=== PATIENT | female | born 1950 | race Caucasian/White ===

== ENCOUNTER 2017-12-11 08:07 | Day surgery (SDC) | payer MEDICARE, OTHER ==
[~2017-12-11] VITALS: Ht 160 cm; Wt 83.7 kg
[~2017-12-11 08:07] MED LIST: CEPH500 PO; FURO20 PO; POTCHL20ER PO
[2017-12-11] MEDS ORDERED: ASPI81CH (08:55)
[2017-12-11] MEDS ORDERED: Omeprazole20 M1 (08:55)
[2017-12-11] MEDS ORDERED: HYDCHL25 (08:55)
[2017-12-11] MEDS ORDERED: LOSA50 (08:55)
[2017-12-11] MEDS ORDERED: DUEXIS 800-26.1 EACH (08:56)
== END 2017-12-11 10:35 | disposition home or self-care (01) ==
LOC: ORSCSDS 08:07
PROVIDERS: Internal Medicine Gastroenterology
PROC: 0DB68ZX Excision of Stomach, Via Natural or Artificial Opening Endoscopic, Diagnostic (ICD-10-PCS; principal; 2017-12-11 09:30)
DX: K21.9 Gastro-esophageal reflux disease without esophagitis (principal); R10.13 Epigastric pain; K25.9 Gastric ulcer, unspecified as acute or chronic, without hemorrhage or perforation; K29.70 Gastritis, unspecified, without bleeding; I10 Essential (primary) hypertension; E66.9 Obesity, unspecified; Z68.32 Body mass index [BMI] 32.0-32.9, adult; Z87.891 Personal history of nicotine dependence; Z79.82 Long term (current) use of aspirin; Z79.899 Other long term (current) drug therapy
CPT/HCPCS: 88305; 88342; J7120

== ENCOUNTER → 2018-03-27 | Outpatient (CLI) | payer MEDICARE, OTHER ==
[~2018-03-27] MED LIST changes: +ASPI81CH; +DUEXIS 800-26.1 EACH; +HYDCHL25; +LOSA50; +Omeprazole20 M1
== END | disposition home or self-care (01) ==
LOC: PLD 10:29 → LAB SHORT 10:29
DX: D48.5 Neoplasm of uncertain behavior of skin (principal)
CPT/HCPCS: 88305

== ENCOUNTER → 2021-03-17 | Outpatient (CLI) | payer MEDICARE, OTHER | LOC: LAB SHORT 10:58 → PLD 10:58 | DX: D48.5 Neoplasm of uncertain behavior of skin (principal) | CPT/HCPCS: 88305 ==

== ENCOUNTER 2021-07-14 07:14 | Emergency (ER) | payer MEDICARE, OTHER ==
[~2021-07-14] VITALS: Ht 160 cm; Wt 72.6 kg
[2021-07-14 08:45] LABS: Calcium, Ionized (POC) 1.05 mmol/L (1.10-1.46); Chloride (POC) 85 mmol/L (98-108); Creatinine (POC) 0.6 mg/dL (0.6-1.0); Glucose (ISTAT POC) 147 mg/dL (70-99); Hemoglobin (POC) 13.9 g/dL (12.0-16.0); Potassium (POC) 3.8 mmol/L (3.5-5.5); Sodium (POC) 122 mmol/L (135-148); Total CO2 (POC) 22 mmol/L (21-32)
[2021-07-14 11:00] LABS: Calcium, Ionized (POC) 1.04 mmol/L (1.10-1.46); Chloride (POC) 87 mmol/L (98-108); Creatinine (POC) 0.6 mg/dL (0.6-1.0); Glucose (ISTAT POC) 137 mg/dL (70-99); Hemoglobin (POC) 13.9 g/dL (12.0-16.0); Potassium (POC) 3.3 mmol/L (3.5-5.5); Sodium (POC) 124 mmol/L (135-148); Total CO2 (POC) 23 mmol/L (21-32)
[2021-07-14] MEDS ORDERED: ONDA4ODT MM (11:31)
== END 2021-07-14 11:35 | disposition home or self-care (01) ==
LOC: ER 07:14
PROVIDERS: Emergency Medicine
DX: U07.1 COVID-19 (principal); I10 Essential (primary) hypertension; E87.1 Hypo-osmolality and hyponatremia; R11.2 Nausea with vomiting, unspecified; R51.9 Headache, unspecified; Z91.011 Allergy to milk products; Z88.0 Allergy status to penicillin; Z88.1 Allergy status to other antibiotic agents; Z88.8 Allergy status to other drugs, medicaments and biological substances; Z91.018 Allergy to other foods; Z79.899 Other long term (current) drug therapy; Z79.82 Long term (current) use of aspirin
CPT/HCPCS: 80047; 85014; 96374; 96375; 99284-25; J0780; J1200; J1885; J2405

== ENCOUNTER 2023-03-21 21:16 | Emergency (ER) | payer MEDICARE, OTHER ==
[~2023-03-21] VITALS: Ht 157.5 cm; Wt 68.0 kg
[~2023-03-21 21:16] MED LIST changes: +ONDA4ODT MM
[2023-03-21 22:26] VITALS: BP 167/79
== END 2023-03-21 22:40 | disposition home or self-care (01) ==
LOC: ER 21:16
DX: H10.13 Acute atopic conjunctivitis, bilateral (principal); Z91.011 Allergy to milk products; Z88.0 Allergy status to penicillin; Z88.1 Allergy status to other antibiotic agents; Z88.8 Allergy status to other drugs, medicaments and biological substances; Z91.018 Allergy to other foods; I10 Essential (primary) hypertension
CPT/HCPCS: A9270; J1885; J2405

== ENCOUNTER 2023-09-18 06:57 | Observation (INO) | payer MEDICARE, OTHER ==
[2023-09-18] VITALS (12 sets, daily range): BP systolic 167–201; BP diastolic 66–96
[~2023-09-18] VITALS: Ht 157.5 cm; Wt 72.1 kg
--- NOTE | 2023-09-18 10:53 | NUR ---
ARRIVAL TO PCU PT ARRIVED TO PCU6 AT 1007 VIA GURNEY. PT ALERT ON ARRIVAL, ORIENTED X4. ABLE TO ANSWER QUESTIONS APPROPRIATELY AND COMMUNICATE NEEDS WITH STAFF. HR 60, PACED. SBP 190'S; PT REPORTS BASELINE IS 180'S AND DOES NOT TAKE ANY MEDICATIONS AT HOME FOR THIS. LEFT UPPER CHEST INCISION WITH DRESSING C/D/I. SLING APPLIED TO LUE, PT EDUCATED ON RESTRICIONS POST-PACER. SPO2 >92% ON RA, DENIES SOB. CODE STATUS DISCUSSED W/ PT ON ARRIVAL; PT STATES THAT SHE WISHES TO BE DNI, STATES THIS IS LISTED ON HER PAPERWORK AT HOME. BROTHER IS HEALTHCARE [employer]. PT ORIENTED TO PCU AND ROOM. EDUCATED ON IGNITION SOURCES AND FIRE RISKS; PT DENIES SMOKING SINCE 1991 AND DOES NOT HAVE IGNITION SOURCES PRESENT AT THIS TIME. CALL LIGHT WITHIN REACH, BED IN LOWEST POSITION.
--- NOTE | 2023-09-18 11:38 | NUR ---
PHYSICIAN CONTACT PT'S SBP 190'S, ASYMPTOMATIC. MD LINDER NOTIFIED OF SUSTAINED HYPERTENSION. ORDERS FOR METOPROLOL RECEIVED, ADMINISTERED PER EMAR.
--- NOTE | 2023-09-18 12:25 | NUR ---
INCISION DRAINAGE PT ARRIVED TO PCU WITH LEFT UPPER CHEST DRESSING C/D/I. APPROX 30MIN AFTER ARRIVAL SEROSANGUINEOUS DRAINAGE NOTED ON GAUZE. MD LINDER AT BEDSIDE, STATED TO CONTINUE MONITORING SITE. NO FURTHER DRAINAGE NOTED AT THIS TIME. ICE PACK IN PLACE.
--- NOTE | 2023-09-18 17:03 | NUR ---
END OF SHIFT NOTE PT A&OX4 T/O SHIFT. CALLS APPROPRIATELY AND MAKES NEEDS KNOWN TO STAFF. LEFT UPPER CHEST DRESSING INTACT W/ SEROSANGUINEOUS DRAINAGE NOTED, UNCHANGED FROM PREVIOUS NOTE. PT REPORTS PAIN IN INCISION SITE, MANAGED PER EMAR. ICE APPLIED TO SITE. PACED ON TELE AT 60. SBP 160-190'S, DECREASED SLIGHTLY FOLLOWING METOPROLOL ADMINISTRATION. SPO2 >95% ON RA, DENIES SOB. ABLE TO AMBULATE TO BATHROOM W/ SBA. TOLERATING DIET WELL, ABLE TO REPOSITION INDEPENDENTLY IN BED. CALL LIGHT WITHIN REACH, BED IN LOWEST POSITION. NO OTHER EVENTS, WILL REPORT TO ONCOMING NOC RN.
[2023-09-19 00:05] VITALS: BP 184/74
[2023-09-19 03:58] VITALS: BP 194/76
--- NOTE | 2023-09-19 07:28 | NUR ---
SHIFT SUMMARY POD 1 S/P DUAL PACER TO LEFT CHEST. GAUZE/ TEGADERM DRESSING INTACT W/ SERSANG DRAINAGE THAT HAS NOT CHANGED THIS SHIFT. PT MEDICATED FOR PAIN 2X THIS SHIFT W/ TYLENOL AND ICE PACK TO CHEST. PT CONTINUES TO EXPERIENCE ELEVATED BP T/O SHIFT, MEDICATED W/ 1X DOSE OF HYDROLYZINE 10MG IV. BP RESPONDED WELL FOR SHORT TIME BUT APPEARS TO BE INCREASING AGAIN. PT TO START METOPROLOL THIS A.M. PT A&OX4, PLEASANT AND COOPERATIVE, UP TO BATHROOM W/ SBA. CALL LIGHT W/IN REACH. WILL REPORT OFF TO ONCOMING STAFF.
[2023-09-19 08:10] VITALS: BP 143/74
[2023-09-19] MEDS ORDERED: Acetaminophen650 M1 PO (09:32)
[2023-09-19] MEDS ORDERED: METO50ER PO (09:34)
--- NOTE | 2023-09-19 10:41 | NUR ---
DISCHARGE NOTE PT DISCHARGED FROM PCU AT 1038. PT WAS EDUCATED ON MEDICATIONS, POST PACER INSTRUCTIONS, AND FOLLOW UP APPTS BY THIS RN. TELEMETRY REMOVED, IV CATHETER REMOVED W/ TIP INTACT. PT ABLE TO DRESS AND PERFORM ADL'S INDEPENDENTLY PRIOR TO DISCHARGE. VSS. PT'S FRIEND AT BEDSIDE TO DRIVE HER HOME. PT WHEELED TO PRIVATE VEHICLE BY STAFF W/O DIFFICULTY. ALL PRIVATE BELONGINGS SENT WITH PT AT TIME OF D/C.
== END 2023-09-19 10:38 | disposition home or self-care (01) ==
LOC: MHTC 06:57 → PCU 10:06 → MHTC 10:07 → PCU 10:07
PROVIDERS: ADMIT Internal Medicine Cardiovascular Disease
DX: I49.5 Sick sinus syndrome (principal); I10 Essential (primary) hypertension; R07.89 Other chest pain; R42 Dizziness and giddiness; Z88.2 Allergy status to sulfonamides; Z88.6 Allergy status to analgesic agent; Z88.1 Allergy status to other antibiotic agents; Z88.8 Allergy status to other drugs, medicaments and biological substances
CPT/HCPCS: 33208; 71046; 99152; 99153; A9270; C1785; C1894; C1898; J0360; J0690; J1644; J2250; J3010; J7040; J7050; Q9967

== ENCOUNTER 2023-11-04 20:18 | Inpatient (IN) | payer MEDICARE, OTHER ==
[~2023-11-04] VITALS: Ht 160 cm; Wt 83.9 kg
[~2023-11-04 20:18] MED LIST changes: +Acetaminophen650 M1 PO; +METO50ER PO
[2023-11-04] MEDS ORDERED: LOSARTAN POTASS25 M2 PO (20:59)
[2023-11-04 21:36] LABS: BASOPHILS ABSOLUTE AUTO 0.03 K/mm3 (0.00-0.23); BASOPHILS PERCENT AUTO 0 % (0-2); EOSINOPHILS PERCENT AUTO 0 % (0-6); Hematocrit 46.2 % (33.0-51.0); Hemoglobin 15.5 g/dL (11.5-16.0); IMMATURE GRAN ABSOLUTE AUTO 0.03 K/mm3 (0.00-0.10); IMMATURE GRAN PERCENT AUTO 0 % (0-1); LYMPHOCYTES ABSOLUTE AUTO 2.83 K/mm3 (0.84-5.20); LYMPHOCYTES PERCENT AUTO 27 % (21-46); MONOCYTES ABSOLUTE AUTO 0.67 K/mm3 (0.16-1.47); MONOCYTES PERCENT AUTO 6 % (4-13); Mean Corpuscular HGB 31.8 pg (26.0-34.0); Mean Corpuscular HGB Conc 33.5 g/dL (31.5-36.5); Mean Corpuscular Volume 95 fL (80-100); Mean Platelet Volume 11.3 fL (9.1-12.4); NEUTROPHILS ABSOLUTE AUTO 6.99 K/mm3 (1.96-9.15); NEUTROPHILS PERCENT AUTO 66 % (41-73); Platelet Count 168 K/mm3 (150-400); RDW Standard Deviation 45.8 fL (35.1-46.3); Red Blood Cell Count 4.88 M/mm3 (3.80-5.20); White Blood Cell Count 10.55 K/mm3 (4.00-11.30)
[2023-11-04 21:52] LABS: International Normalized Ratio 0.98; Prothrombin Time Results 10.3 Sec (9.7-11.5)
[2023-11-04 21:53] LABS: Albumin, Blood 4.5 g/dL (3.4-5.0); Albumin/Globulin Ratio 1.2 (0.8-1.8); Bilirubin, Total 0.6 mg/dL (0.1-1.0); Bun/Creatinine Ratio 24.9 (12.0-20.0); Calcium, Blood 9.6 mg/dL (8.5-10.1); Creatinine, Blood 0.6 mg/dL (0.40-1.00); Globulin, Blood 3.9 g/dL (2.2-4.0); Potassium, Blood 3.3 mmol/L (3.5-5.5); Total Protein, Blood 8.4 g/dL (6.4-8.2)
[2023-11-04 23:17] LABS: Source, Urine Clean Catch
[2023-11-04 23:20] LABS: Bilirubin, Urine Neg (Neg); Blood, Urine Neg (Neg); Glucose Qualitative, Urine 3+ (Neg); Ketones, Urine 4+ (Neg); Leukocyte Esterase, Urine Neg (Neg); Nitrite, Urine Neg (Neg); Protein, Urine 2+ (Neg); Specific Gravity, Urine 1.015 (1.003-1.022); Urobilinogen, Urine NORM (Normal)
[2023-11-04 23:31] LABS: Appearance, Urine Clear (Clear); Color, Urine Pale Yellow (P-Yellow)
[2023-11-04 23:32] LABS: Red Blood Cells, Urine Not Seen /hpf (0-2); Squamous Epithelial Cells Not Seen /hpf (Few); White Blood Cells, Urine Not Seen /hpf (0-5)
[2023-11-04 23:33] LABS: Bacteria Not Seen /hpf
[2023-11-05] VITALS (48 sets, daily range): BP systolic 87–168; BP diastolic 44–89
--- NOTE | 2023-11-05 06:43 | NUR ---
SUMMARY PT ADMITTED TO ROOM 224 FROM THE ED FOR A SBO, PT IS A&O X4, TIRED BUT RESPONDS APPROPRIATLY, ABD PAIN RATED 12/10, DISTENDED, NG TUBE PLACED IN ED, LOW INTER SUCTION, LIGHT PINK FUID NOTED IN CANISTER, PT IS NPO PENDING SURGICAL CONSULT, 50 MCG IV FENTANYL WAS ORDERED FOR PAIN, PT CONTINUES TO C/O SEVERE PAIN, NOTIFIED @0635, FENTANYL ORDER WAS CHANGED 1 MG IV DILAUDED Q4 PRN, PT IS RESTING IN BED AT THIS TIME, PAIN MEDICATION WILL BE GIVEN WHEN CLEARED BY PHARMACY, WCTM & REPORT TO DAY SHIFT RN, CALL LIGHT IN REACH.
--- NOTE | 2023-11-05 07:38 | NUR ---
UPDATE PROVIDED TO NEXT OF KIN CONTACT, KAZ DEL ROSARIO.
--- NOTE | 2023-11-05 08:02 | NUR ---
PT TO OR DR DESOUZA SAW PT TO TOOK TO OR. ABX SENT WITH PT TO BE GIVEN IN PREOP.
--- NOTE | 2023-11-05 08:04 | NUR ---
PT RECENTLY HERE BY BED,TELE BEEN NOTIFIED OF COMING TO [facility]. History, Chart, Medications and Allergies reviewed before start of procedure.Lungs clear T/O to Auscultation. Patient confirms NPO status and agrees with scheduled surgery. Pre-Op teaching done. Pt verbalizes understanding.
--- NOTE | 2023-11-05 08:16 | NUR ---
TRUCKING CONTRACTOR TO REMOVE BRA AND WIPE PT'S ABD
--- NOTE | 2023-11-05 10:55 | NUR ---
TRANSFER TO ICU PT TAKEN FROM SURGICAL FLOOR TO THE OR FOR ABD PROCEDURE THIS MORNING. PT ARRIVED TO ICU 12 VIA BED AT 0955 S/P ABD SURGERY. PT ARRIVED INTUBATED AND SEDATED. PT TRANSFERED TO ICU BED AND PLACED ON VENT. VENT SETTINGS AC 14, TV 350, PEEP 5, FIO2 60%. PT INITIALLY SEDATED WITH IVP OF KETAMINE BY ANESTHESIA PROVIDER. PT STARTED TO WAKE AND PLACED ON PROPOFOL AT 20 MCG/KG/MIN. PT ABLE TO NOD HEAD APPROPRIATELY TO QUESTIONS. PT NODDED YES TO PAIN AND MED PER EMAR. NGT IN PLACE TO LIS. MINIMAL BILE OUTPUT NOTED. PT WITH [address] LR INFUSING AT 75 ML/HR AT THIS TIME. MUIR PLACED IN OR, DRAINING CLEAR YELLOW OUTPUT. SBW RESTRAINTS IN PLACE AT THIS TIME. VITAL SIGNS STABLE. PT BROTHER UPDATED VIA PHONE ABOUT PT CONDITION AND PLAN OF CARE.
[2023-11-05 11:56] LABS: Source, Urine Foley catheter
[2023-11-05 12:05] LABS: Appearance, Urine Clear (Clear); Bilirubin, Urine Neg (Neg); Blood, Urine Neg (Neg); Color, Urine Yellow (P-Yellow); Glucose Qualitative, Urine 2+ (Neg); Ketones, Urine 3+ (Neg); Leukocyte Esterase, Urine Neg (Neg); Nitrite, Urine Neg (Neg); Protein, Urine 2+ (Neg); Urobilinogen, Urine NORM (Normal)
[2023-11-05 12:11] LABS: BASOPHILS ABSOLUTE AUTO 0.02 K/mm3 (0.00-0.23); BASOPHILS PERCENT AUTO 0 % (0-2); EOSINOPHILS PERCENT AUTO 0 % (0-6); Hemoglobin 10.7 g/dL (11.5-16.0); IMMATURE GRAN ABSOLUTE AUTO 0.02 K/mm3 (0.00-0.10); IMMATURE GRAN PERCENT AUTO 0 % (0-1); LYMPHOCYTES ABSOLUTE AUTO 0.71 K/mm3 (0.84-5.20); LYMPHOCYTES PERCENT AUTO 10 % (21-46); MONOCYTES ABSOLUTE AUTO 1.05 K/mm3 (0.16-1.47); MONOCYTES PERCENT AUTO 14 % (4-13); Mean Corpuscular HGB 31.9 pg (26.0-34.0); Mean Corpuscular HGB Conc 33.4 g/dL (31.5-36.5); Mean Corpuscular Volume 96 fL (80-100); Mean Platelet Volume 11.5 fL (9.1-12.4); NEUTROPHILS ABSOLUTE AUTO 5.47 K/mm3 (1.96-9.15); NEUTROPHILS PERCENT AUTO 75 % (41-73); Platelet Count 120 K/mm3 (150-400); RDW Coefficient Variation 13.4 % (11.7-14.2); RDW Standard Deviation 47.3 fL (35.1-46.3); Red Blood Cell Count 3.35 M/mm3 (3.80-5.20); White Blood Cell Count 7.27 K/mm3 (4.00-11.30)
[2023-11-05 12:17] LABS: Amorphous Light (0-Heavy); Bacteria Few /hpf; Red Blood Cells, Urine 0-2 /hpf (0-2); Squamous Epithelial Cells Few /hpf (Few)
[2023-11-05 12:18] LABS: Hyaline Casts 0-2 /lpf (0-2)
[2023-11-05 12:47] LABS: Albumin, Blood 2.9 g/dL (3.4-5.0); Bilirubin, Total 0.4 mg/dL (0.1-1.0); Bun/Creatinine Ratio 24.6 (12.0-20.0); Creatinine, Blood 0.97 mg/dL (0.40-1.00); Globulin, Blood 2.9 g/dL (2.2-4.0); Potassium, Blood 4.8 mmol/L (3.5-5.5); Total Protein, Blood 5.8 g/dL (6.4-8.2)
--- NOTE | 2023-11-05 17:05 | NUR ---
SHIFT SUMMARY NO ACUTE CHANGES THIS SHIFT. PT REMAINS INTUBATED AND LIGHTLY SEDATED. VENT SETTINGS AC 14, TV 350, PEEP 5, FIO2 30%. PT WITH MINIMAL ETT OR ORAL SECRETIONS. PT SEDATED WITH PROPOFOL AT 25 MCG/KG/MIN. PT OPENS EYES TO VERBAL STIMULI AND NODS HEAD TO QUESTIONS. LR INFUSING AT 75 ML/HR AND NS TKO THROUGH PIV'S. PT WITH NGT IN PLACE TO LIS WITH SMALL AMOUNT OF BILE OUTPUT NOTED. PT WITH MIDLINE ABD INCISION WITH WOUND VAC IN PLACE. PT MED WITH DILAUDID PER EMAR. MUIR REMAINS IN PLACE WITH CLEAR YELLOW OUTPUT NOTED. SBW RESTRAINTS IN PLACE. VITAL SIGNS REMAINS STABLE. PT BROTHER UPDATED VIA PHONE. WILL CONTINUE TO MONITOR AND REPORT OFF TO ONCOMING RN.
--- NOTE | 2023-11-05 21:26 | NUR ---
MAP IN UPPER 50'S. CALL TO HOSPITALIST WITH ORDER OF 500 NS BOLUS. SECOND 500 BOLUS OK IF FIRST DID NOT CORRECT. SECOND BOLUS RUNNING NOW WITH MAP AT 61. CONTINUING TO MONITOR.
--- NOTE | 2023-11-05 22:22 | NUR ---
PT MAP REMAINS <65 WITH 1 LITER BOLUS FINISHED AT THIS TIME. ORDER FOR ONE MORE 500 ML BOLUS. WILL CONVERT TO LOW DOSE LEVOPHED PER DR ORDER IF BOLUS DOES NOT CORRECT.
[2023-11-06] VITALS (74 sets, daily range): BP systolic 78–168; BP diastolic 45–76
[2023-11-06 04:14] LABS: BASOPHILS ABSOLUTE AUTO 0.01 K/mm3 (0.00-0.23); BASOPHILS PERCENT AUTO 0 % (0-2); EOSINOPHILS PERCENT AUTO 0 % (0-6); Hematocrit 25.3 % (33.0-51.0); Hemoglobin 8.3 g/dL (11.5-16.0); IMMATURE GRAN ABSOLUTE AUTO 0.02 K/mm3 (0.00-0.10); IMMATURE GRAN PERCENT AUTO 0 % (0-1); LYMPHOCYTES ABSOLUTE AUTO 0.94 K/mm3 (0.84-5.20); LYMPHOCYTES PERCENT AUTO 9 % (21-46); MONOCYTES ABSOLUTE AUTO 1.14 K/mm3 (0.16-1.47); MONOCYTES PERCENT AUTO 11 % (4-13); Mean Corpuscular HGB 31.7 pg (26.0-34.0); Mean Corpuscular HGB Conc 32.8 g/dL (31.5-36.5); Mean Corpuscular Volume 97 fL (80-100); Mean Platelet Volume 11.4 fL (9.1-12.4); NEUTROPHILS PERCENT AUTO 80 % (41-73); Platelet Count 139 K/mm3 (150-400); RDW Coefficient Variation 14.1 % (11.7-14.2); RDW Standard Deviation 49.3 fL (35.1-46.3); Red Blood Cell Count 2.62 M/mm3 (3.80-5.20); White Blood Cell Count 10.61 K/mm3 (4.00-11.30)
[2023-11-06 04:49] LABS: Albumin, Blood 2.5 g/dL (3.4-5.0); Albumin/Globulin Ratio 0.9 (0.8-1.8); Bilirubin, Total 0.3 mg/dL (0.1-1.0); Bun/Creatinine Ratio 26.2 (12.0-20.0); Calcium, Blood 7.9 mg/dL (8.5-10.1); Creatinine, Blood 1.22 mg/dL (0.40-1.00); Globulin, Blood 2.8 g/dL (2.2-4.0); Magnesium, Blood 1.9 mg/dL (1.6-2.4); Phosphorus, Blood 4.1 mg/dL (2.5-4.9); Potassium, Blood 4.5 mmol/L (3.5-5.5); Total Protein, Blood 5.3 g/dL (6.4-8.2)
--- NOTE | 2023-11-06 06:59 | NUR ---
END OF SHIFT SUMMARY PT REMAINS ALERT. OPENS EYES AND LOOKS AT PERSON TALKING. NODS HEAD YES AND NO. LIGHT SEDATION AND INTUBATED. LEVOPHED STARTED ON PT THIS SHIFT D/T LOW BP WITH NO CORRECTION AFTER 1500 MLS/BOLUS NS. PT VERY EDEMETUS BLE AND STARTING IN BUE. VITALS WNL AT THIS TIME. LEVOPHED AT 4 MCG LR AT 75 MLS/HR.
--- NOTE | 2023-11-06 10:40 | NUR ---
ASSUMED CARE CARE WAS ASSUMED OF PT AT 0700, REPORT GIVEN BY MOISE NGUYEN. PT INTUBATED AND SEDATED, PROPOFOL GTT INFUSING, SEE FLOWSHEET. PT OPENS EYES TO VERBAL STIMULI AND ABLE TO FOLLOW COMMANDS. WHEN TESTED PT DIDN'T HAVE A GAG REFLEX, BUT IS ABLE TO FOLLOW ALL COMMANDS, MOVES ALL 4 EXTREMITIES AND NODS HEAD FOR YES AND NO QUESTIONS. PT REMAINS IN BILATERAL SOFT WRIST RESTRAINTS FOR SAFETY. RASS 0. PT'S L PUPIL IRREGULAR SHAPE, PT NODS HEAD YES TO HAVING OPTHALMIC PROCEDURAL HX. VENT SETTINGS AC/VC 14/350/5/30%, ETT 6.5, 22 CM AT TEETH. PT TOLERATING WELL, SYCHRONOUS WITH VENTILATOR, O2 SATS > 95%. CARDIAC MONITORING REFLECTS NSR AT THIS TIME. AT START OF SHIFT ATRIAL-PACED RHYTHM NOTED. PT HAS DUAL-CHAMBER PACEMAKER, SET RATE OF 60. HR 70s AT THIS TIME. LEVOPHED GTT INFUSING AT START OF SHIFT FOR GOAL OF MAP > 65, LEVOPHED PUT ON SB, SEE FLOWSHEET. MUIR PATENT AND DRAINING TO GRAVITY. DR. DESOUZA IN TO SEE PATIENT THIS MORNING, 1 UNIT OF PRBCs ORDERED AND INFUSING AT THIS TIME. PLAN FOR PT TO GO BACK TO OR THIS AFTERNOON. WOUND VAC IN PLACE AT MID-ABDOMEN, DRAINING SEROSANGUINOUS FLUID.
[2023-11-06 15:44] LABS: Hemoglobin 8.3 g/dL (11.5-16.0)
--- NOTE | 2023-11-06 15:54 | NUR ---
PATIENT TO OR WITH OR STAFF AND DR. CASTRO AT BEDSIDE.
[2023-11-06 16:09] LABS: Bun/Creatinine Ratio 28.6 (12.0-20.0); Creatinine, Blood 0.98 mg/dL (0.40-1.00); Potassium, Blood 4.2 mmol/L (3.5-5.5)
--- NOTE | 2023-11-06 16:37 | NUR ---
11/06/23 1637 Corona Reed PT HERE FROM ICU12. INTUBATED- DR. FUNEZ USING AMBU BAG FOR VENTALATION. PT ON CONT. PULSE OX, HR, RR, MACHINE SLAT BASKET MAKER. PT HAS MUIR CATH INPLACE. PT HAS SIGNIFICANT BILATERAL LOWER LEG EDEMA. WOUND VAC IN OPEN ABDOMEN. 1ST BLACK FOAM AND ISABEL REMOVED PER Mann ORELLANA. PREP THEN COMPLETED BY Say KERR RN. 2ND PIECE OF BLACK FOAM REMOVED AFTER DRAPING PER DR. DESOUZA.
--- NOTE | 2023-11-06 17:19 | NUR ---
SHIFT SUMMARY PT TAKEN TO OR AT 1554, REMAINED INTUBATED AND SEDATED. BEFORE TRANSFER TO OR PT REMAINED A/O TO SELF AND FOLLOWING COMMANDS. PT ABLE TO MOVE ALL 4 EXTREMITIES AND NOD HEAD FOR YES AND NO QUESTIONS. PT REMAINED IN SOFT BILATERAL WRIST RESTRAINTS FOR SAFETY. PROPOFOL GTT INFUSING PRIOR TO OR TRANSFER, SEE FLOWSHEET. VENT SETTINGS REMAIN UNCHANGED TODAY, AC/VC 14/350/5/30%. O2 SATS > 95%. PT HAVING LARGE AMOUNT OF ORAL SECRETIONS THIS SHIFT. CARDIAC MONITORING REFLECTED NSR TODAY WELL ATRIAL-PACED RHYTHM AT TIMES. PT HAS DUAL-CHAMBER PACEMAKER WITH A SET RATE OF 60. LEVOPHED PT ON SB THIS MORNING, SEE FLOWSHEET. MAP > 65 THIS SHIFT. WOUND VAC CONTINUED TO DRAIN SEROSANGUINOUS FLUID THIS SHIFT. MUIR PATENT AND DRAINING TO GRAVITY. PT MEDICATED FOR PAIN THIS SHIFT PER EMAR. AWAITING PT RETURN FROM OR.
--- NOTE | 2023-11-06 18:41 | NUR ---
BACK FROM OR PT BACK FROM OR AT 181. FRANNIE DRESSING IN PLACE, CANISTER INDICATING PATENT SEAL AROUND DRESSING. LUNG JURADO CLEAR, VENT SETTINGS RETURNED TO PREVIOUS SETTINGS OF AC/VC 14/350/5/30%, O2 SATS > 95%. ETT 22 AT THE TEETH. CARDIAC MONITORING REFLECTS NSR, HR 60s. SBP 160s. PROPOFOL GTT INFUSING, SEE FLOWSHEET. BOWEL TONES HEARD IN LLQ. MUIR DRAINING YELLOW URINE.
--- NOTE | 2023-11-06 20:31 | NUR ---
ASSUMPTION OF CARE: RECEIVED REPORT FROM EMILIANO NGUYEN AND ABI RN. PT INTUBATED AND SEDATED. PT OPENS EYES TO VERBAL STIMULI, ABLE TO NOD HEAD YES AND NO TO QUESTIONS AND FOLLOW COMMANDS. LEFT PUPIL LARGER AND MORE IRREGULAR IN SHAPE THAN RIGHT PUPIL. PT ENDORSES PAIN WITH MOVEMENT, MEDICATED PER MAR WITH RELIEF. PROPOFOL INCREASED TO 30 MCG/KG/MIN FOR COMFORT. VENT SETTINGS AC/VC 14/350/5/30%. SPO2 >95%. LUNG SOUNDS CLEAR. LEAD PRINTER IN PLACE, SR CURRENTLY WITH HR 60'S. PACED AT TIMES. SBP 130'S-150'S. PIV'S INTACT AND INFUSING. MUIR DRAINING YELLOW URINE TO GRAVITY. FRANNIE IN PLACE TO ABDOMEN, DRESSING C/D/I. EDEMA NOTED IN UPPER AND LOWER EXTREMETIES. BED LOW AND LOCKED.
[2023-11-07] VITALS (54 sets, daily range): BP systolic 92–166; BP diastolic 46–124
[2023-11-07 04:30] LABS: BASOPHILS PERCENT AUTO 0 % (0-2); EOSINOPHILS PERCENT AUTO 0 % (0-6); Hematocrit 23.5 % (33.0-51.0); Hemoglobin 7.9 g/dL (11.5-16.0); IMMATURE GRAN ABSOLUTE AUTO 0.01 K/mm3 (0.00-0.10); IMMATURE GRAN PERCENT AUTO 0 % (0-1); LYMPHOCYTES ABSOLUTE AUTO 0.71 K/mm3 (0.84-5.20); LYMPHOCYTES PERCENT AUTO 13 % (21-46); MONOCYTES ABSOLUTE AUTO 0.55 K/mm3 (0.16-1.47); MONOCYTES PERCENT AUTO 10 % (4-13); Mean Corpuscular HGB 32.1 pg (26.0-34.0); Mean Corpuscular HGB Conc 33.6 g/dL (31.5-36.5); Mean Corpuscular Volume 96 fL (80-100); Mean Platelet Volume 12.2 fL (9.1-12.4); NEUTROPHILS ABSOLUTE AUTO 4.31 K/mm3 (1.96-9.15); NEUTROPHILS PERCENT AUTO 77 % (41-73); Platelet Count 80 K/mm3 (150-400); RDW Coefficient Variation 14.7 % (11.7-14.2); RDW Standard Deviation 51.3 fL (35.1-46.3); Red Blood Cell Count 2.46 M/mm3 (3.80-5.20); White Blood Cell Count 5.58 K/mm3 (4.00-11.30)
[2023-11-07 04:48] LABS: Albumin, Blood 1.8 g/dL (3.4-5.0); Albumin/Globulin Ratio 0.7 (0.8-1.8); Bilirubin, Total 0.2 mg/dL (0.1-1.0); Bun/Creatinine Ratio 26.4 (12.0-20.0); Calcium, Blood 7.4 mg/dL (8.5-10.1); Creatinine, Blood 0.72 mg/dL (0.40-1.00); Globulin, Blood 2.5 g/dL (2.2-4.0); Potassium, Blood 4.2 mmol/L (3.5-5.5); Total Protein, Blood 4.3 g/dL (6.4-8.2)
--- NOTE | 2023-11-07 06:08 | NUR ---
SHIFT SUMMARY: PT REMAINS INTUBATED AND SEDATED T/O THE SHIFT. ATTEMPTED TO WEAN SEDATION, TURNED PROPOFOL DOWN TO 15 MCG/KG/MIN, PT BECAME VERY AGITATED AND STARTED THRASHING IN THE BED. PT ATTEMPTED TO PUSH BITE BLOCK OUT WITH TONGUE WELL BITING ON THE TUBE. PROPOFOL TURNED BACK UP TO 40 MCG/KG/MIN FOR COMFORT AND VENT COMPLIANCE. PT ABLE TO OPEN EYES TO VERBAL STIMULI, FOLLOW SIMPLE COMMANDS AND NOD HEAD YES/NO. PT ENDORSES PAIN IN ABDOMEN, MEDICATED PER MAR WITH LITTLE RELIEF. LR INFUSING AT 75 ML/HR. POWERGLIDE TO PIETER, INFUSING. PIV'S INTACT. FRANNIE IN PLACE TO ABDOMEN, DRESSING REMAINS C/D/I. EDEMA NOTED IN UPPER AND LOWER EXTREMETIES. VENT SETTINGS AC/VC 14/350/5/30%. SPO2 >95%. SCANT SECRETIONS SUCTIONED FROM ET TUBE. MEDART OPERATOR IN PLACE, SR/PACED WITH HR 60'S. SBP 100'S-120'S. NO BM THIS SHIFT. ABDOMEN REMAINS MILDLY DISTENTED AND SOFT, BOWEL SOUNDS HEARD IN ALL FOUR QUADRANTS. BED LOW AND LOCKED.
--- NOTE | 2023-11-07 09:10 | NUR ---
ASSUMED CARE CARE WAS ASSUMED OF PT AT 0700, REPORT GIVEN BY GUME NGUYEN. PT INTUBATED AND SEDATED, PROPOFOL GTT INFUSING, SEE FLOWSHEET. PT RESPONDS TO VERBAL STIMULI AND ABLE TO FOLLOW COMMANDS. MOVES ALL 4 EXTREMITIES. PT MEDICATED FOR PAIN THIS MORNING PER EMAR. CPOT 0 AT THIS TIME. RASS 0 TO -1. PT ABLE TO NOD HEAD FOR YES AND NO QUESTIONS. PT IN BILATERAL SOFT WRIST RESTRAINTS FOR SAFETY. VENT SETTINGS AC/VC 14/350/5/30%. O2 SATS > 95%. CARDIAC MONITORING REFLECTS NSR/ATRIAL PACED RHYTHM. SBP 100s-110s. HR 60s. PT HAS DUAL-CHAMBER PACEMAKER WITH SET RATE OF 60. MUIR PATENT AND DRAINING TO GRAVITY. BOWEL TONES AUDIBLE IN ALL 4 QUADRANTS, MORE AUDIBLE IN LOWER QUADRANTS. FRANNIE DRESSING IN PLACE, C/D/I. NG IN PLACE, SET TO LIS. PLAN TO ASSESS PT FOR EXTUBATION TODAY.
--- NOTE | 2023-11-07 11:21 | NUR ---
EXTUBATION PROPOFOL PUT ON SB AT 1050. PT TOLERATING SPONT VENT SETTINGS SET BY DR. DSOUZA. PT'S TIDAL VOLUMES 400s-500s AND GREATER. FENTANYL CRYSTAL GROWING TECHNICIAN INFUSING PER EMAR, PT TOLERATING WELL. PT EXTUBATED AT 1112, RESTRAINTS REMOVED WITH EXTUBATION. PT A/O X3, ASKING WHAT HAPPENED AFTER EXTUBATION BUT ABLE TO ANSWER ORIENTATION QUESTIONS APPROPRIATELY. NG REMAINS IN PLACE. PT EDUCATED ON HOW TO USE CRYSTAL GROWING TECHNICIAN WELL UPDATE ON HER STATUS/PROCEDURES THAT OCCURED SINCE HER ADMISSION.
[2023-11-07 14:10] LABS: Hematocrit 28.6 % (33.0-51.0); Hemoglobin 9.2 g/dL (11.5-16.0)
--- NOTE | 2023-11-07 14:43 | NUR ---
Pt. is awake in bed when he welcomes my visit. Pt. is pleasant, but displays evidence of exhaustion. Facilitated a life review and considered matters of janeth and belief. Prayed with Pt. and established rapport. Pt. verbalized gratitude for the spiritual care visit and requested that this black top machine operator contact her religious in [place].
--- NOTE | 2023-11-07 15:31 | NUR ---
Spiritual Care Support. Pts. assembler golf wood head contacted by phone. Supervisor Decorating will plan to visit Pt. on .
--- NOTE | 2023-11-07 18:29 | NUR ---
SHIFT SUMMARY PT REMAINS A/O X4. PT EXTUBATED THIS SHIFT, SEE NURSE NOTE. PT ABLE TO USE CALL LIGHT APPROPRIATELY AND MAKE NEEDS KNOWN. PT WAS ABLE TO STAND AND PIVOT TO CHAIR THIS AFTERNOON. PT ON 3 L N/C, O2 SATS > 95%. CARDIAC MONITORING REFLECTS NSR SINCE EXTUBATION. HR 80s-90s, SBP 120s AT THIS TIME. PT HAS FENTANYL PIPELINE ENGINEER, WHEN REASSESSING T/O SHIFT PT HAD OCCASIONAL COMPLAINTS OF PAIN BUT TYPICALLY RATED THE PAIN 2-3/10. FRANNIE DRESSING REMAINS IN PLACE, C/D/I. PLAN FOR PT IS TO HAVE SWALLOW EVALUATION TOMORROW.
--- NOTE | 2023-11-07 22:10 | NUR ---
ASSUMPTION OF CARE: RECEIVED REPORT FROM EMILIANO RN AND PAULINE RN. PT ALERT AND ORIENTED TO TIME, PERSON, PLACE AND SITUATION. ABLE TO ANSWER QUESTIONS AND MAKE NEEDS KNOWN. PT HAS PERIODS OF CONFUSION BUT IS EASILY REDIRECTABLE. PT HAS C/O PAIN IN THE ABDOMEN WHICH IS RELIEVED WITH MEDICATION AND REST. FENTANYL MANAGED SECURITY SALES CONSULTANT 10 MCG/HR CONTINUOUS WITH A 10 MCG MANAGED SECURITY SALES CONSULTANT DOSE. ABDOMEN MILDLY DISTENTED BUT SOFT TO THE TOUCH. FRANNIE DRESSING C/D/I. DIRECTOR BUSINESS INTELLIGENCE IN PLACE, SR/PACED WITH HR 60'S-70'S. SBP 140'S. DENIES CHEST PAIN OR PRESSURE. PT ON 3L NC WITH SPO2 >95%. POWERGLIDE TO PIETER, INFUSING. PIV'S SALINE LOCKED. NGT SET TO LOW INTERMITTENT SUCTION. PUREWICK IN PLACE. NO BM YET. BED LOW AND LOCKED. CALL LIGHT IN REACH.
[2023-11-08] VITALS (20 sets, daily range): BP systolic 141–198; BP diastolic 64–95
[2023-11-08 04:01] LABS: BASOPHILS PERCENT AUTO 0 % (0-2); EOSINOPHILS PERCENT AUTO 0 % (0-6); Hematocrit 25.9 % (33.0-51.0); Hemoglobin 8.3 g/dL (11.5-16.0); IMMATURE GRAN ABSOLUTE AUTO 0.04 K/mm3 (0.00-0.10); IMMATURE GRAN PERCENT AUTO 1 % (0-1); LYMPHOCYTES ABSOLUTE AUTO 1.84 K/mm3 (0.84-5.20); LYMPHOCYTES PERCENT AUTO 25 % (21-46); MONOCYTES ABSOLUTE AUTO 0.63 K/mm3 (0.16-1.47); MONOCYTES PERCENT AUTO 9 % (4-13); Mean Corpuscular HGB 31.4 pg (26.0-34.0); Mean Corpuscular Volume 98 fL (80-100); Mean Platelet Volume 11.6 fL (9.1-12.4); NEUTROPHILS ABSOLUTE AUTO 4.83 K/mm3 (1.96-9.15); NEUTROPHILS PERCENT AUTO 66 % (41-73); Platelet Count 107 K/mm3 (150-400); RDW Coefficient Variation 14.7 % (11.7-14.2); Red Blood Cell Count 2.64 M/mm3 (3.80-5.20); White Blood Cell Count 7.34 K/mm3 (4.00-11.30)
[2023-11-08 04:20] LABS: Albumin, Blood 2.2 g/dL (3.4-5.0); Albumin/Globulin Ratio 0.8 (0.8-1.8); Bilirubin, Total 0.2 mg/dL (0.1-1.0); Bun/Creatinine Ratio 23.5 (12.0-20.0); Calcium, Blood 7.8 mg/dL (8.5-10.1); Creatinine, Blood 0.68 mg/dL (0.40-1.00); Globulin, Blood 2.9 g/dL (2.2-4.0); Potassium, Blood 4.2 mmol/L (3.5-5.5); Total Protein, Blood 5.1 g/dL (6.4-8.2)
--- NOTE | 2023-11-08 06:34 | NUR ---
SHIFT SUMMARY: PT REMAINS ALERT AND ORIENTED TO TIME, PERSON, PLACE AND SITUATION. ABLE TO ANSWER QUESTIONS, FOLLOW COMMANDS AND STATE NEEDS. PT ABLE TO SLEEP OFF AND ON THROUGHOUT THE SHIFT. PT REMAINS ON 3L NC WITH SPO2 >95%. DENIES SOB. WELT BEATER IN PLACE, SR WITH HR 70'S. SBP 140'S. DENIES CHEST PAIN OR PRESSURE. PT HAS C/O PAIN IN ABDOMEN T/O THE SHIFT. FENTANYL PATHOLOGY SECRETARY/TRANSCRIPTIONIST INFUSING AT 10 MCG/HR. ABDOMEN REMAINS SOFT WITH MILD DISTENTION. FRANNIE IN PLACE, DRESSING C/D/I. PT UNABLE TO VOID T/O THE SHIFT, BLADDER SCAN DONE AND STRAIGHT CATH DONE. NO BM THIS SHIFT. POWERGLIDE TO PIETER, INFUSING. PIV'S INTACT AND SALINE LOCKED. BED LOW AND LOCKED. CALL LIGHT IN REACH.
--- NOTE | 2023-11-08 07:42 | NUR ---
CARE OF PT ASSUMED AT 0700. PT WIDE AWAKE AND OX3. WHEN ASKED, PT C/O LOWER SHARP ABD PAIN 07/29. PT CALM AND RELAXED AND HAS BIBLE TEACHER AVAILABLE. PT'S ABD IS DISTENDED WITH HYPERATIVE TYMPANIC BOWEL TONES T/O. PT STATES SHE HAS NOT PASSED ANY GAS. WHEN ASKED SHE C/O "A LITTLE", NAUSEA. PT STATES SHE IS HUNGRY AND WOULD LOVE SOME RAZO AND EGGS. NGT TO LIS WITH SMALL AMT OF BILE OUTPUT. PT REQUIRED STRAIGHT CATH LAST NIGHT FOR RETENTION W 1L OUTPUT. PLAN: OOB TO CHAIR TODAY TOLERATED, MANAGE PAIN, SWALLOW EVAL ORDERED.
[2023-11-08 10:33] LABS: Source, Urine Foley catheter
--- NOTE | 2023-11-08 10:38 | NUR ---
DR DESOUZA AT BEDSIDE. MADE A CLARIFICATION THAT HE DID NOT WANT A SWALLOW EVAL BUT RATHER A NUTRITION CONSULT FOR RISK OF SHORT GUT SYNDROME, FOR WHEN SHE IS ABLE TO EAT/DRINK. PT TO REMAIN NPO FOR NOW W NGT TO LIS. DARK GREEN BILE OUTPUT. PT HAS URINARY RETENTION W 400CC ON BLADDER SCAN, PT UNABLE TO VOID. 16F MUIR CATH PLACED W/O DIFFICULTY PER DR DESOUZA'S ORDERS. DR DESOUZA WOULD PERFER TO LEAVE CATHETER IN FOR 1-2DAYS DUE TO THE EXTENT OF HER SURGERY. OKAY TO GIVE HEP PER DR DESOUZA. DILAUDID 1MG GIVEN FOR 07/29 PAIN W GOOD EFFECT. PT STATES PAIN NOW 3/10, PT IS ABLE TO SLEEP/REST.
[2023-11-08 11:14] LABS: Appearance, Urine Clear (Clear); Bilirubin, Urine Neg (Neg); Blood, Urine Neg (Neg); Color, Urine Yellow (P-Yellow); Glucose Qualitative, Urine Neg (Neg); Ketones, Urine Neg (Neg); Leukocyte Esterase, Urine Neg (Neg); Nitrite, Urine Neg (Neg); Protein, Urine Neg (Neg); Specific Gravity, Urine 1.015 (1.003-1.022); Urobilinogen, Urine NORM (Normal); pH, Urine 6.5 (5.0-8.0)
--- NOTE | 2023-11-08 11:40 | NUR ---
DR CONNOR IN TO SEE PT. PT TO START CLINIMIX, DIETITIAN NOTIFIED. PT SURGERICAL STATUS.
--- NOTE | 2023-11-08 13:14 | NUR ---
Pt. is awake in bed and welcomes my visit. Pt. verbalizes the her corporate event planner and his spouse had visited. And verbalizes that her yazidism and neighbors are helping take care of her house. Facilitated an update of her status and Pt. displays expectation that she will be moved to the medical floor before she is transferred to a rehab facility. Sought to normalize the Pt. experience. Pt. verbalized gratitude for the spiritual care support and visit.
--- NOTE | 2023-11-08 17:07 | NUR ---
ASSUMED CARE @1645, PATIENT IS AOX4, IV CLINIMIX AND NET APPLICATION SUPPORT SPECIALIST RUNNING. BOWEL SOUNDS IN ALL FOUR QUADS.MILD DISTENTION, NG TUBE TO LOW INT. SX. GREEN/BROWN DRNG OUTPUT. FRANNIE TO MIDLINE IS C/D/I, AND COMPRESSED. TELE IN PLACE SR 70'S. PATIENT DENIES PAIN AT THIS TIME. NET APPLICATION SUPPORT SPECIALIST IN REACH, CALL LIGHT IN REACH.
[2023-11-09 00:10] VITALS: BP 174/77
[2023-11-09 03:58] VITALS: BP 191/86
[2023-11-09 04:55] LABS: Anion Gap 5 mmol/L (6-16); Blood Urea Nitrogen 15 mg/dL (8-24); Bun/Creatinine Ratio 24.4 (12.0-20.0); CO2, Blood 30 mmol/L (21-32); Chloride, Blood 105 mmol/L (98-108); Creatinine, Blood 0.62 mg/dL (0.40-1.00); Glomerular Filtration Rate 95 (60-); Glucose, Blood 185 mg/dL (70-99); Magnesium, Blood 2.2 mg/dL (1.6-2.4); Phosphorus, Blood 3.6 mg/dL (2.5-4.9); Potassium, Blood 3.9 mmol/L (3.5-5.5); Sodium, Blood 140 mmol/L (136-145); Triglycerides 172 mg/dL (30-160)
[2023-11-09 06:41] LABS: BASOPHILS ABSOLUTE AUTO 0.01 K/mm3 (0.00-0.23); BASOPHILS PERCENT AUTO 0 % (0-2); EOSINOPHILS ABSOLUTE AUTO 0.02 K/mm3 (0.00-0.68); EOSINOPHILS PERCENT AUTO 0 % (0-6); Hematocrit 28.8 % (33.0-51.0); Hemoglobin 9.5 g/dL (11.5-16.0); IMMATURE GRAN ABSOLUTE AUTO 0.03 K/mm3 (0.00-0.10); IMMATURE GRAN PERCENT AUTO 1 % (0-1); LYMPHOCYTES ABSOLUTE AUTO 1.32 K/mm3 (0.84-5.20); LYMPHOCYTES PERCENT AUTO 23 % (21-46); MONOCYTES ABSOLUTE AUTO 0.65 K/mm3 (0.16-1.47); MONOCYTES PERCENT AUTO 11 % (4-13); Mean Corpuscular HGB 31.8 pg (26.0-34.0); Mean Corpuscular Volume 96 fL (80-100); Mean Platelet Volume 11.3 fL (9.1-12.4); NEUTROPHILS ABSOLUTE AUTO 3.69 K/mm3 (1.96-9.15); NEUTROPHILS PERCENT AUTO 65 % (41-73); Platelet Count 132 K/mm3 (150-400); RDW Standard Deviation 49.5 fL (35.1-46.3); Red Blood Cell Count 2.99 M/mm3 (3.80-5.20); White Blood Cell Count 5.72 K/mm3 (4.00-11.30)
--- NOTE | 2023-11-09 06:42 | NUR ---
SHIFT SUMMARY PT IS HERE FOR AN EX LAP ON 11/05 AND A RIGHT HEMICOLECTOMY ON 11/06. PT HAS BEEN UNCOMFORTABLE WHEN AWAKE THIS SHIFT, BUT IS NOT AWARE ENOUGH TO PRESS HER LAB ASSISTANT BUTTON TO HAVE IT DELIVER MORE PAIN MEDICATION. MD'S AWARE. PT WANTED TO STAND EARLIER IN THE SHIFT, BUT STATED SHE WAS TOO PAINFUL. SHE ALSO TRIED TO GET OOB AT 0445 AND WAS ABLE TO SIT UP BEFORE HER BED ALARM WENT OFF. PT HAD A SMALL BOWEL MOVEMENT THIS AM (SOFT, DARK BROWN, LIQUID). DR. DESOUZA IS AWARE. PT'S BP HAS BEEN ELEVATED THIS SHIFT, WITH LABATELOL GIVEN TWICE AND HYDRALAZINE GIVEN ONCE. PT HAS ALSO BEEN ON ROOM AIR FOR MOST OF THE SHIFT AND SATTING IN THE 90'S, EVEN WHEN ASLEEP. ASIDE FROM THE PT'S BP, VITAL SIGNS HAVE BEEN STABLE. BED IS IN LOWEST POSITION, CALL LIGHT AND LAB ASSISTANT BUTTON ARE WITHIN REACH.
[2023-11-09 07:42] VITALS: BP 171/95
[2023-11-09 12:20] VITALS: BP 156/77
[2023-11-09 14:06] VITALS: BP 126/69
--- NOTE | 2023-11-09 14:58 | NUR ---
SHIFT SUMMARY: POD 3 POST EX LAP WITH RIGHT COLECTOMY PATIENT IS A&OX4. VS ARE WNL AND IS ON RA. PAIN IS MANAGED WITH PO NORCO. SHE IS TOLERATING HER CLEAR LIQUID DIET. DENIES NAUSEA OR VOMITING. SHE IS A SBA WITH FWW AND GAIT BELT. HER ABD HAS A MIDLINE FRANNIE THAT IS C/D/I. SHE IS VOIDING AND PASSING GAS. SHE CALLS APPROPRIATELY. PATIENT IS CURRENTLY LAYING IN THE RECLINER CHAIR WITH LEGS ELEVATED AND CALL LIGHT IN REACH.
--- NOTE | 2023-11-09 17:16 | NUR ---
PATIENT HAD AN EMESIS EPISODE WITH DARK GREEN PUKE. PATIENT REPORTS FEELING BETTER AFTER, RN NOTIFIED
[2023-11-09 19:38] VITALS: BP 155/70
[2023-11-10 03:10] VITALS: BP 174/93
[2023-11-10 06:53] LABS: Bun/Creatinine Ratio 23.2 (12.0-20.0); Calcium, Blood 8.2 mg/dL (8.5-10.1); Creatinine, Blood 0.65 mg/dL (0.40-1.00); Magnesium, Blood 2.3 mg/dL (1.6-2.4); Phosphorus, Blood 4.8 mg/dL (2.5-4.9); Potassium, Blood 3.9 mmol/L (3.5-5.5)
[2023-11-10 07:26] VITALS: BP 145/72
--- NOTE | 2023-11-10 07:48 | NUR ---
SHIFT SUMMARY NOC. PT A/O X4. PT MIDLINE FRANNIE IS C/D/I WITH SCANT DRIED SS DRAINAGE. PT MEDICATED FOR NAUSEA THIS SHIFT WITH RELIEF. NO VOMITING. PT PRODUCED 1600 ML OF GREEN OUTPUT FROM NG TUBE. NG CONNECTED TO LIS. PT RESTED THIS SHIFT WITH EYES CLOSED AND CALL LIGHT IN REACH.
[2023-11-10 07:56] LABS: BASOPHILS PERCENT AUTO 0 % (0-2); EOSINOPHILS ABSOLUTE AUTO 0.04 K/mm3 (0.00-0.68); EOSINOPHILS PERCENT AUTO 2 % (0-6); Hematocrit 29.4 % (33.0-51.0); IMMATURE GRAN ABSOLUTE AUTO 0.02 K/mm3 (0.00-0.10); IMMATURE GRAN PERCENT AUTO 1 % (0-1); LYMPHOCYTES ABSOLUTE AUTO 0.83 K/mm3 (0.84-5.20); LYMPHOCYTES PERCENT AUTO 35 % (21-46); MONOCYTES ABSOLUTE AUTO 0.71 K/mm3 (0.16-1.47); MONOCYTES PERCENT AUTO 30 % (4-13); Mean Corpuscular HGB 32.2 pg (26.0-34.0); Mean Corpuscular Volume 95 fL (80-100); Mean Platelet Volume 10.9 fL (9.1-12.4); NEUTROPHILS ABSOLUTE AUTO 0.75 K/mm3 (1.96-9.15); NEUTROPHILS PERCENT AUTO 32 % (41-73); Platelet Count 143 K/mm3 (150-400); RDW Coefficient Variation 13.9 % (11.7-14.2); RDW Standard Deviation 47.6 fL (35.1-46.3); Red Blood Cell Count 3.11 M/mm3 (3.80-5.20); White Blood Cell Count 2.35 K/mm3 (4.00-11.30)
[2023-11-10 15:20] VITALS: BP 164/80
[2023-11-10 19:08] VITALS: BP 145/68
--- NOTE | 2023-11-10 19:58 | NUR ---
PT HAS BEEN STABLE THIS SHIFT. LABETOLOL X1 FOR HIGH BLOOD PRESSURE, EFFECTIVE. CONT NGT, ABOUT 1600CC OUTPUT THIS SHIFT GREEN DRAINAGE. PT STARTED ON PROTONIX FOR COMPLAINTS OF ACID REFLUX. NAUSEA X1 TREATED WITH ZOFRAN, EFFECTIVE. SUPPOSITORY X1 THIS SHIFT WITH SCANT RESULTS. PT HAVING VERY LITTLE FLATUS. RESTARTED ON CLINIMIX THIS AM. PT OSMANI ICE CHIPS. THROAT SPRAY PRN FOR NGT RELATED THROAT IRRITATION. PT WORKED WITH PT TO MOBILIZE OOB.
[2023-11-11 05:25] VITALS: BP 149/74
[2023-11-11 05:26] LABS: Hematocrit 26.4 % (33.0-51.0); Hemoglobin 8.9 g/dL (11.5-16.0); Mean Corpuscular HGB 31.9 pg (26.0-34.0); Mean Corpuscular HGB Conc 33.7 g/dL (31.5-36.5); Mean Corpuscular Volume 95 fL (80-100); Platelet Count 163 K/mm3 (150-400); RDW Coefficient Variation 13.9 % (11.7-14.2); RDW Standard Deviation 47.9 fL (35.1-46.3); Red Blood Cell Count 2.79 M/mm3 (3.80-5.20); White Blood Cell Count 4.67 K/mm3 (4.00-11.30)
[2023-11-11 05:48] LABS: Albumin, Blood 2.4 g/dL (3.4-5.0); Albumin/Globulin Ratio 0.7 (0.8-1.8); Bilirubin, Total 0.4 mg/dL (0.1-1.0); Calcium, Blood 8.4 mg/dL (8.5-10.1); Creatinine, Blood 0.64 mg/dL (0.40-1.00); Globulin, Blood 3.3 g/dL (2.2-4.0); Magnesium, Blood 2.6 mg/dL (1.6-2.4); Phosphorus, Blood 3.5 mg/dL (2.5-4.9); Potassium, Blood 3.3 mmol/L (3.5-5.5); Total Protein, Blood 5.7 g/dL (6.4-8.2)
[2023-11-11 06:10] LABS: BAND PERCENT MAN 32 % (0-8); BASOPHILS PERCENT MAN 0 % (0-2); EOSINOPHILS PERCENT MAN 0 % (0-6); LYMPHOCYTES ABSOLUTE MAN 0.98 K/mm3 (0.84-5.20); LYMPHOCYTES PERCENT MAN 21 % (21-46); MONOCYTES ABSOLUTE MAN 1.12 K/mm3 (0.16-1.47); MONOCYTES PERCENT MAN 24 % (4-13); NEUTROPHILS ABSOLUTE MAN 2.56 K/mm3 (1.96-9.15); SEG NEUTROPHILS PERCENT MAN 23 % (41-73); TOTAL CELLS COUNTED 100
[2023-11-11 07:26] VITALS: BP 149/61
--- NOTE | 2023-11-11 08:06 | NUR ---
SHIFT SUMMARY NOC. PT A/O X4. PT MIDLINE FRANNIE IS C/D/I ASIDE FROM SCANT DRIED DRAINAGE. PT IS VOIDING AND GOT UP TO BEDSIDE COMMODE. PT'S NG TUBE IS CONNECTED TO LIS AND PRODUCED 1000 ML OF GREEN OUTPUT THIS SHIFT. PT'S PROTONIX CHANGED FROM PO TO IV AND NEW ORDERS RECEIVED FOR CLINIMIX. PT REPORTED IRRITATION FROM NG TUBE IN NARES AND THROAT EARLY THIS AM. PT VERBALIZED SHE FEELS CONGESTED AND "MIGHT HAVE A SINUS INFECTION". PT HAD A H/A OF 8/10 THIS SHIFT AND RECEIVED IV PAIN MED X1 WITH SOME RELIEF. PT DESATURATED TO 88% AFTER MED, SATS RETURNED VIA 1 LITER VIA N/C. REPORT GIVEN TO DAY SHIFT RN REGARDING ABOVE. PT RESTED WITH EYES CLOSED AND CALL LIGHT IN REACH.
[2023-11-11 14:39] VITALS: BP 148/64
[2023-11-11 19:12] VITALS: BP 142/53
--- NOTE | 2023-11-11 19:13 | NUR ---
SHIFT SUMMARY POD6 EX LAP/POD5 EX LAP CLOSURE, A/OX4, VSS, TOLERATING SMALL AMOUNTS OF CLEAR PO INTAKE, PT REFUSING MOST CARE OUTSIDE OF MEDICATIONS TODAY, NG TUBE CLAMPED PER MD BUT STILL SET UP SHOULD SHE HAVE N/V. NO ACUTE EVENTS THIS SHIFT, CALL LIGHT IN REACH.
[2023-11-11 20:46] VITALS: BP 147/71
[2023-11-12 02:54] VITALS: BP 153/69
[2023-11-12 04:27] LABS: Hematocrit 29.8 % (33.0-51.0); Hemoglobin 9.6 g/dL (11.5-16.0); Mean Corpuscular HGB 31.2 pg (26.0-34.0); Mean Corpuscular HGB Conc 32.2 g/dL (31.5-36.5); Mean Corpuscular Volume 97 fL (80-100); Mean Platelet Volume 11.4 fL (9.1-12.4); Platelet Count 171 K/mm3 (150-400); RDW Coefficient Variation 13.3 % (11.7-14.2); RDW Standard Deviation 47.7 fL (35.1-46.3); Red Blood Cell Count 3.08 M/mm3 (3.80-5.20); White Blood Cell Count 7.19 K/mm3 (4.00-11.30)
[2023-11-12 04:49] LABS: Albumin, Blood 2.5 g/dL (3.4-5.0); Albumin/Globulin Ratio 0.7 (0.8-1.8); Bilirubin, Total 0.3 mg/dL (0.1-1.0); Bun/Creatinine Ratio 35.4 (12.0-20.0); Calcium, Blood 8.3 mg/dL (8.5-10.1); Creatinine, Blood 0.57 mg/dL (0.40-1.00); Globulin, Blood 3.5 g/dL (2.2-4.0); Potassium, Blood 3.6 mmol/L (3.5-5.5)
--- NOTE | 2023-11-12 04:52 | NUR ---
SHIFT SUMMARY POD 7 EX LAP & POD 6 EX LAP CLOSURE. NO ACUTE CHANGES OVERNIGHT. VS WNL FOR PT. TOLERATING MINIMAL AMOUNTS OF CLEAR PO INTAKE. PT REPORTED NAUSEA WHEN TRYING TO SLEEP. NG TUBE RECONNECTED TO LOW INTERMITTENT SUCTION, DRAINING DARK GREEN FLUID. PAIN TOLERABLE, PT REPORTS CURRENT PAIN R/T "REFLUX", MEDICATED PER EMAR. MIDLINE FRANNIE C/D/I c SCANT DRAINAGE. PT REPORTS NEED OF "EXTRA HELP" WHEN PERFORMING ADLS. FWW c SBA TO BEDSIDE COMMODE. CALL LIGHT WITHIN REACH, BED IN LOWEST POSITION, WILL REPORT TO DAY RN.
[2023-11-12 05:43] LABS: BAND PERCENT MAN 19 % (0-8); BASOPHILS PERCENT MAN 0 % (0-2); EOSINOPHILS ABSOLUTE MAN 0.14 K/mm3 (0.00-0.68); EOSINOPHILS PERCENT MAN 2 % (0-6); LYMPHOCYTES ABSOLUTE MAN 0.86 K/mm3 (0.84-5.20); LYMPHOCYTES PERCENT MAN 12 % (21-46); MONOCYTES PERCENT MAN 21 % (4-13); NEUTROPHILS ABSOLUTE MAN 4.67 K/mm3 (1.96-9.15); SEG NEUTROPHILS PERCENT MAN 46 % (41-73); TOTAL CELLS COUNTED 100
[2023-11-12 07:28] VITALS: BP 162/63
--- NOTE | 2023-11-12 08:00 | NUR ---
Received report from Noc RN. Patient awake in bed. She is alert and oriented and slow soft speech, and is able to communicate her needs. She has ice chips and tolerating well. She has NG to LIS and has dark green liquid output about 300 ml's since noc shift emptied. Resecured NG as she accidently pulls at it. Painful abdomen to palpation. Dressings intact and C/D.
--- NOTE | 2023-11-12 11:30 | NUR ---
Patient has been up in chair for about and hour and then request back to bed. Dr Knox by and clamped NG and around [address] on LIS and if less than 200mls may pull NG. Resecured ND and retaped. She remains on 2L O2 via NC and sats >90%.She has 20ga PG in PIETER and reinforced dressing. Gave tums and suppository and tolerated well.
[2023-11-12 14:21] VITALS: BP 166/62
--- NOTE | 2023-11-12 15:07 | NUR ---
Patient has been up to cammode several times with SBA and had small soft brown stools. Will reassess NG to LIS at 1600. She remains on 2L O2 via NC and sats >90%. Gave report hand off to dayshift RN
--- NOTE | 2023-11-12 15:56 | NUR ---
RECONNECTED TO LOW INTERMITTENT SUCTION AT THIS TIME. PT TOLERATING WELL. WILL MONITOR VOLUME. IF LESS THAN 200ML WILL DISCONTINUE PER DR. DESOUZA.
--- NOTE | 2023-11-12 16:39 | NUR ---
NGT REMOVED AT THIS TIME. PT TOLERATED PROCEDURE WELL. SHE WAS VERY EXCITED TO HAVE IT OUT. PT REPORTS PASSING FLATUS AND HAVING BOWEL MOVEMENTS. IND IN ROOM. NO NAUSEA DURING SHIFT. NO PAIN REPORTED SINCE ASSUMPTION OF CARE.
[2023-11-12 18:27] VITALS: BP 149/81
[2023-11-13 04:23] VITALS: BP 153/71
--- NOTE | 2023-11-13 04:30 | NUR ---
SHIFT SUMMARY POD 6 R HEMICOLECTOMY PT ABLE TO REST T/O NIGHT. PAIN MANAGED PER EMAR. USED THE BSC, VOIDING. PASSING GAS. FRANNIE DRESSING C/D/I, COMPRESSED. CLINIMIX RUNNING. SATS STAYING ABOVE 94% ON 2L NC. COMPLAINED OF NAUSEA ONCE DURING THE SHIFT. NO OTHER CONCERNS AT THIS TIME. CALL LIGHT WITHIN REACH.
[2023-11-13 07:11] VITALS: BP 129/69
[2023-11-13 14:41] VITALS: BP 138/65
--- NOTE | 2023-11-13 15:05 | NUR ---
PT REPORTS PAIN AROUND POWERGLIDE SITE. CLINIMIX STOPPED AT THIS TIME. SPOKE WITH POWERGLIDE TRAINED NURSE TO COME AND ASSESS. PT CURRENTLY RESTING IN BED. DENIES PAIN ONCE INFUSION STOPPED.
--- NOTE | 2023-11-13 16:12 | NUR ---
shift summary pod6 r hemicolectomy. pt pain controlled today. only discomfort has been relieved with tums. up working with therapy during shift. passing gas. tolerating diet well. no nausea. dietitian came and provided patient with education. pt receptive. plan is to continue clinimix and discharge once cleared medically. plan is for snf.
--- NOTE | 2023-11-13 17:41 | NUR ---
PT ATE DINNER AND HAD 300ML EMESIS RIGHT AFTER. PT ABDOMENT APPEARS MORE DISTENDED AT THIS TIME AND PT DENIES PASSING FLATUS. EDUCATED PT AND BOWEL REST AND PT WILL HOLD OFF EATING AND DRINKING FOR NOW TO ALLOWS BOWELS TO REST. CLINIMIX INFUSING IN NEW POWERGLIDE IN KIP. PT RESTING IN BED. REPORTS NAUSEA RESOLVED AFTER EMESIS.
[2023-11-13 18:24] VITALS: BP 136/60
[2023-11-13 19:49] VITALS: BP 120/67
[2023-11-14 03:27] VITALS: BP 132/58
[2023-11-14 05:03] LABS: Albumin, Blood 2.4 g/dL (3.4-5.0); Anion Gap 6 mmol/L (6-16); Blood Urea Nitrogen 25 mg/dL (8-24); Bun/Creatinine Ratio 48.4 (12.0-20.0); CO2, Blood 29 mmol/L (21-32); Chloride, Blood 97 mmol/L (98-108); Creatinine, Blood 0.52 mg/dL (0.40-1.00); Glomerular Filtration Rate 99 (60-); Glucose, Blood 162 mg/dL (70-99); Phosphorus, Blood 3.3 mg/dL (2.5-4.9); Potassium, Blood 4.2 mmol/L (3.5-5.5); Sodium, Blood 132 mmol/L (136-145)
--- NOTE | 2023-11-14 05:26 | NUR ---
SHIFT SUMMARY PT RESTED WELL T/O NOC. NO ACUTE CHANGES. 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 PT DENIES FLATUS, BUT HAD X1 LOOSE STOOL LAST NOC. DENIES ABD PAIN, BUT DOES COMPLAIN OF HEARTBURN. TUMS PRN. CLINIMIX INFUSING PER ORDERS. TOLERATING CLEAR LIQS. 1 ASSIST WITH FWW TO RESTROOM. USES CALL LIGHT APPROPRIATELY.
[2023-11-14 07:38] VITALS: BP 128/53
--- NOTE | 2023-11-14 10:20 | NUR ---
THIS NURSE IS ASSUMING CARE AFTER REPORT WAS GIVEN FROM ABEL NGUYEN.
--- NOTE | 2023-11-14 10:43 | NUR ---
REPORT PASSED TO PATRICK DENIS
[2023-11-14 14:06] VITALS: BP 141/63
--- NOTE | 2023-11-14 15:02 | NUR ---
SHIFT SUMMARY: PATIENT IS A&OX4. VS ARE WNL AND IS ON RA. PAIN IS MANAGED WITH IV FENTANYL AT THIS TIME. PATIENT VOMITED ONCE THIS MORNING AND WAS YELLOW COLORED WHICH SHE WAS GIVEN PO PHENERGAN WHICH MANAGED THE NAUSEA FEELING FOR A COUPLE OF HOURS. PATIENT WOKE UP AGAIN RECENTLY SAYING SHE IS NAUSEOUS AGAIN AND HAS HAD TWO LOOSE BMS. SHE WAS GIVEN IV ZOFRAN THIS TIME WHICH HAS MANAGED HER NAUSEA SO FAR. PATIENT IS A SBA WITH IV LINE ASSISTANCE. SHE STILL IS RECIEVING IV CLINDAMIX THROUGH HER POWERGLIDE. PATIENT IS LAYING BACK IN BED WITH CALL LIGHT IN REACH TALKING ON THE PHONE. PATIENT CALLS APPROPRIATELY.
[2023-11-14 19:15] VITALS: BP 126/64
[2023-11-15 04:33] VITALS: BP 123/50
[2023-11-15 05:48] LABS: Albumin, Blood 2.4 g/dL (3.4-5.0); Anion Gap 5 mmol/L (6-16); Blood Urea Nitrogen 31 mg/dL (8-24); Bun/Creatinine Ratio 55.5 (12.0-20.0); CO2, Blood 28 mmol/L (21-32); Calcium, Blood 8.1 mg/dL (8.5-10.1); Chloride, Blood 98 mmol/L (98-108); Creatinine, Blood 0.56 mg/dL (0.40-1.00); Glomerular Filtration Rate 98 (60-); Glucose, Blood 163 mg/dL (70-99); Phosphorus, Blood 3.6 mg/dL (2.5-4.9); Potassium, Blood 4.7 mmol/L (3.5-5.5); Sodium, Blood 131 mmol/L (136-145)
--- NOTE | 2023-11-15 06:05 | NUR ---
SHIFT SUMMARY NO ACUTE CHANGES TO REPORT THIS SHIFT. PT CONTINUES TO HAVE INTERMITTENT NAUSEA, APPETITE LOW. NAUSEA MANAGED WITH MEDS PER EMAR. PT REFUSED MOST OF HER HS MEDICATIONS DUE TO NAUSEA. SHE HAS NOT HAD ANY VOMITTING THIS SHIFT, BOWEL TONES HYPOACTIVE. CLINIMIX INFUSING. VITALS ARE STABLE. BED IN LOWEST POSITION, CALL LIGHT WITHIN REACH.
[2023-11-15 07:02] VITALS: BP 136/67
[2023-11-15 14:40] VITALS: BP 114/60
--- NOTE | 2023-11-15 17:44 | NUR ---
SHIFT SUMMARY PT AOX4. VSS. PT PLEASEANT AND COOPERATIVE WITH CARE. PT WAS ABLE TO AMBULATE AROUND UNIT WITH STANDBY ASSIST. PT CONINUES TO HAVE LOOSE STOOLS. CONTINUES TO HAVE POOR APPETITE AND REQUIRES ENCOURAGEMENT FOR PO INTAKE. MEDICATED PER EMAR FOR PAIN. NO ACUTE CHANGES.
[2023-11-15 19:17] VITALS: BP 141/65
[2023-11-16 02:33] VITALS: BP 135/71
--- NOTE | 2023-11-16 06:30 | NUR ---
SHIFT SUMMARY POD 11 EX LAP, POD 10 EX LAP CLOSURE. NO ACUTE CHANGES OVERNIGHT. VS WNL FOR PT. TELE- ATRIAL PACED, SINUS RHYTHM, BIOX IN USE. TOLERATING MINIMAL LIQUID PO INTAKE, ENCOURAGEMENT FOR INCREASED INTAKE REQUIRED, NO NAUSEA REPORTED THIS SHIFT. CLINIMIX INFUSING PER EMAR. PT HAD MULTIPLE LOOSE STOOLS THIS SHIFT, ATTENS IN PLACE. AMBULATING c FWW & SBA R/T LINES. PT REPORTS GENERALIZED WEAKNESS. PT REPORTS PAIN TOLERABLE. CALL LIGHT WITHIN USE, BED IN LOWEST POSITION, WILL REPORT TO DAY RN.
[2023-11-16 06:40] LABS: Magnesium, Blood 2.3 mg/dL (1.6-2.4)
[2023-11-16 06:41] LABS: Albumin, Blood 2.3 g/dL (3.4-5.0); Anion Gap 6 mmol/L (6-16); Blood Urea Nitrogen 29 mg/dL (8-24); Bun/Creatinine Ratio 52.2 (12.0-20.0); CO2, Blood 25 mmol/L (21-32); Calcium, Blood 8.1 mg/dL (8.5-10.1); Chloride, Blood 101 mmol/L (98-108); Creatinine, Blood 0.56 mg/dL (0.40-1.00); Glomerular Filtration Rate 98 (60-); Glucose, Blood 144 mg/dL (70-99); Phosphorus, Blood 3.6 mg/dL (2.5-4.9); Potassium, Blood 4.6 mmol/L (3.5-5.5); Sodium, Blood 132 mmol/L (136-145); Triglycerides 68 mg/dL (30-160)
[2023-11-16 07:23] VITALS: BP 114/65
[2023-11-16 15:08] VITALS: BP 159/75
--- NOTE | 2023-11-16 18:09 | NUR ---
SHIFT SUMMARY DID WELL TODAY, NO ACUTE CHANGES. PATIENT VOIDING WELL AND PASSING STOOL. SUPPLEMENTAL NUTRITION RUNNING. MIDLINE INCISION KENNETH. SBA TO BATHROOM. WILL REPORT TO ONCOMING RN.
[2023-11-16 20:19] VITALS: BP 156/69
[2023-11-17 04:06] VITALS: BP 132/63
[2023-11-17 05:19] LABS: BASOPHILS ABSOLUTE AUTO 0.02 K/mm3 (0.00-0.23); BASOPHILS PERCENT AUTO 0 % (0-2); EOSINOPHILS ABSOLUTE AUTO 0.03 K/mm3 (0.00-0.68); EOSINOPHILS PERCENT AUTO 0 % (0-6); Hematocrit 28.4 % (33.0-51.0); Hemoglobin 9.5 g/dL (11.5-16.0); IMMATURE GRAN ABSOLUTE AUTO 0.08 K/mm3 (0.00-0.10); IMMATURE GRAN PERCENT AUTO 1 % (0-1); LYMPHOCYTES ABSOLUTE AUTO 2.01 K/mm3 (0.84-5.20); LYMPHOCYTES PERCENT AUTO 25 % (21-46); MONOCYTES ABSOLUTE AUTO 1.37 K/mm3 (0.16-1.47); MONOCYTES PERCENT AUTO 17 % (4-13); Mean Corpuscular HGB 31.9 pg (26.0-34.0); Mean Corpuscular HGB Conc 33.5 g/dL (31.5-36.5); Mean Corpuscular Volume 95 fL (80-100); Mean Platelet Volume 11.1 fL (9.1-12.4); NEUTROPHILS ABSOLUTE AUTO 4.59 K/mm3 (1.96-9.15); NEUTROPHILS PERCENT AUTO 57 % (41-73); Platelet Count 300 K/mm3 (150-400); RDW Coefficient Variation 13.5 % (11.7-14.2); Red Blood Cell Count 2.98 M/mm3 (3.80-5.20)
[2023-11-17 06:02] LABS: Albumin, Blood 2.4 g/dL (3.4-5.0); Anion Gap 4 mmol/L (6-16); Blood Urea Nitrogen 22 mg/dL (8-24); Bun/Creatinine Ratio 40.7 (12.0-20.0); CO2, Blood 25 mmol/L (21-32); Calcium, Blood 8.2 mg/dL (8.5-10.1); Chloride, Blood 104 mmol/L (98-108); Creatinine, Blood 0.54 mg/dL (0.40-1.00); Glomerular Filtration Rate 98 (60-); Glucose, Blood 143 mg/dL (70-99); Magnesium, Blood 2.2 mg/dL (1.6-2.4); Phosphorus, Blood 4.6 mg/dL (2.5-4.9); Potassium, Blood 4.8 mmol/L (3.5-5.5); Sodium, Blood 133 mmol/L (136-145)
[2023-11-17 07:17] VITALS: BP 153/68
--- NOTE | 2023-11-17 07:40 | NUR ---
SHIFT SUMMARY NO ACUTE CHANGES NOTED THROUGH THE NIGHT, PT IS A&OX3-4, ON RA, VSS, TOLERATING PO INTAKE, PO FLUIDS ENC, DENIES NAUSEA, PAIN MANAGED PER EMAR, VOIDING WNL, SBA TO BSC, ISABEL/INCISION C/D/I, CLINIMIX INFUSING, REPORT GIVEN TO MIO NGUYEN, CALL LIGHT IN REACH
[2023-11-17 14:29] VITALS: BP 116/65
--- NOTE | 2023-11-17 19:18 | NUR ---
SHIFT SUMMARY PT IS AOX4, WORKED WITH PT. IVF DC'D. TOELRATING SMALL AMOUNT OF PO INTAKE. SHOWERED TODAY. SMALL BOUT OF NAUSEA ZOFRAN GIVEN. PATIENT TOLERATED WELL. NO ACUTE EVENTS THIS SHIFT BOWEL MOVEMENTS HAVE DECREASED IN FREQUENCY AND HAVE BECOME MORE SOLID. VSS, CALL LIGHT IN REACH.
[2023-11-17 20:54] VITALS: BP 125/58
[2023-11-18 04:46] VITALS: BP 119/62
[2023-11-18 05:41] LABS: Albumin, Blood 2.3 g/dL (3.4-5.0); Anion Gap 4 mmol/L (6-16); Blood Urea Nitrogen 19 mg/dL (8-24); Bun/Creatinine Ratio 29.3 (12.0-20.0); CO2, Blood 25 mmol/L (21-32); Calcium, Blood 7.9 mg/dL (8.5-10.1); Chloride, Blood 106 mmol/L (98-108); Creatinine, Blood 0.65 mg/dL (0.40-1.00); Glomerular Filtration Rate 94 (60-); Glucose, Blood 114 mg/dL (70-99); Potassium, Blood 4.8 mmol/L (3.5-5.5); Sodium, Blood 135 mmol/L (136-145)
--- NOTE | 2023-11-18 05:45 | NUR ---
SHIFT SUMMARY NO ACUTE CHANGES NOTED OVER NIGHT, VSS, ON RA, INCISION C/D/I, PAIN MANAGED W PO MEDS, TOLERATING PO INTAKE, DENIES NAUSEA, VOIDING WNL, CONTINUES TO HAVE LOOSE STOOLS, PT RESTING QUIETLY AT THIS TIME, CALL LIGHT IN REACH, WCTM & REPORT TO ONCOMING RN.
[2023-11-18 07:11] VITALS: BP 128/61
--- NOTE | 2023-11-18 11:56 | NUR ---
PT TRANSFERED TO MEDICAL FLOOR. REPORT GIVEN TO RECIEVING RN. ALL BELONGIGNS WITH PATIENT.
--- NOTE | 2023-11-18 12:14 | NUR ---
PT ARRIVED TO MEDICAL FLOOR @1140 VIA HOSPITAL BED. MID ABDOMINAL INCISION OBSERVED WITH PATRICK JAMES. INCISION OPEN TO AIR AND CLOSED VIA ISABEL. PILLOWS PLACED UNDER HIPS PER PT REQUEST. PILLOW PLACED UNDER FEET FOR 2+ EDEMA. PT EATING LUNCH AT THIS TIME W/O COMPLAINTS.
[2023-11-18 15:39] VITALS: BP 128/68
--- NOTE | 2023-11-18 18:24 | NUR ---
SHIFT SUMMARY: PT A&O X4. PLEASANT AND COOPERATIVE WITH CARE. PT WAS A PCU TRANSFER THIS SHIFT. SEE TRANSFER NOTE. PT C/O "INTENSE" ABD PAIN WHILE THIS RN WAS ON LUNCH. PATRICK PORTILLO PROVIDED PT WITH ZOFRAN AND PAIN MEDICATION PER EMAR. PT SLEEPING COMFORTABLY WHEN THIS RN ARRIVED BACK FROM LUNCH. PT STATED PAIN MEDICATION WORKED WELL AND SHE BELIEVED SHE TWISTED WRONG. PLAN FOR SNF ONCE BED BECOMES AVAILABLE. CALL LIGHT IN REACH. BED IN LOWEST POSITION.
[2023-11-18 19:24] VITALS: BP 129/70
[2023-11-19 04:27] VITALS: BP 138/75
[2023-11-19 06:33] LABS: Bun/Creatinine Ratio 25.9 (12.0-20.0); Calcium, Blood 8.2 mg/dL (8.5-10.1); Creatinine, Blood 0.73 mg/dL (0.40-1.00); Potassium, Blood 4.8 mmol/L (3.5-5.5)
--- NOTE | 2023-11-19 15:54 | NUR ---
SHIFT SUMMARY: PT A&O X4. PLEASANT AND COOPERATIVE WITH CARE. PT C/O PAIN IN ABDOMEN AND NAUSEA THIS AM. MEDICATED PER EMAR SHOWING IMPROVEMENT. ABD REMAINS DISTENDED. PT PASSING GAS AND HAVING BOWEL MOVEMENTS STILL. DECREASED APPETITE. HOSPITALIST AWARE AND ORDERED 1V XR ABD COMPLETED @1545. ABD INCISION C/D/I. TELE IN PLACE ATRIAL PACED. SB ASSIST IN ROOM. CALL LIGHT IN REACH. BED IN LOWEST POSITION.
[2023-11-19] MEDS ORDERED: Acetaminophen650 M1 PO (23:33)
[2023-11-20 04:33] VITALS: BP 124/66
--- NOTE | 2023-11-20 04:45 | NUR ---
SHIFT SUMMARY PT A&OX4 AND ANSWERS QUESTIONS APPROPRIATELY. PT AMBULATED TO BATHROOM AT START OF SHIFT AND PROCEEDED TO HAVE A BOWEL MOVEMENT. PT VERBALIZED SOME PAIN, MEDICATED PER EMAR. NO COMPLAINTS OF NAUSEA/VOMITING. PT SLEPT THROUGH MOST OF SHIFT. NO ACUTE EVENTS OCCURED. VSS. PT LEFT IN A POSITION OF SAFETY WITH FALL PRECAUTIONS IN PLACE AND CALL LIGHT WITHIN REACH.
[2023-11-20 07:31] VITALS: BP 126/57
[2023-11-20 08:16] LABS: BASOPHILS ABSOLUTE AUTO 0.01 K/mm3 (0.00-0.23); BASOPHILS PERCENT AUTO 0 % (0-2); EOSINOPHILS ABSOLUTE AUTO 0.01 K/mm3 (0.00-0.68); EOSINOPHILS PERCENT AUTO 0 % (0-6); Hematocrit 26.1 % (33.0-51.0); Hemoglobin 8.7 g/dL (11.5-16.0); IMMATURE GRAN ABSOLUTE AUTO 0.02 K/mm3 (0.00-0.10); IMMATURE GRAN PERCENT AUTO 1 % (0-1); LYMPHOCYTES ABSOLUTE AUTO 0.93 K/mm3 (0.84-5.20); LYMPHOCYTES PERCENT AUTO 21 % (21-46); MONOCYTES ABSOLUTE AUTO 0.76 K/mm3 (0.16-1.47); MONOCYTES PERCENT AUTO 17 % (4-13); Mean Corpuscular HGB 31.4 pg (26.0-34.0); Mean Corpuscular HGB Conc 33.3 g/dL (31.5-36.5); Mean Corpuscular Volume 94 fL (80-100); Mean Platelet Volume 10.6 fL (9.1-12.4); NEUTROPHILS ABSOLUTE AUTO 2.66 K/mm3 (1.96-9.15); NEUTROPHILS PERCENT AUTO 61 % (41-73); Platelet Count 267 K/mm3 (150-400); RDW Coefficient Variation 13.5 % (11.7-14.2); RDW Standard Deviation 46.8 fL (35.1-46.3); Red Blood Cell Count 2.77 M/mm3 (3.80-5.20); White Blood Cell Count 4.39 K/mm3 (4.00-11.30)
[2023-11-20 08:34] LABS: Bun/Creatinine Ratio 30.9 (12.0-20.0); Creatinine, Blood 0.71 mg/dL (0.40-1.00); Potassium, Blood 4.3 mmol/L (3.5-5.5)
[2023-11-20 15:42] VITALS: BP 126/65
--- NOTE | 2023-11-20 16:10 | NUR ---
SHIFT SUMMARY: PT A&O X4. PLEASANT AND COOPERATIVE WITH CARE. PT STILL HAVING DIARRHEA THIS SHIFT. DR. DESOUZA REMOVED STITCHES FROM ABD INCISION AND ORDERED METAMUCIL. PT HAVING LESS PAIN THAN YESTERDAY. 3+ EDEMA IN BILAT FEET. PILLOW PLACED UNDER FEET WHILE IN BED. MINIMAL APPETITE. PT STATED SHE WOULD TRY VANILLA ENSURE TO BE STARTED TOMORROW AM. CURRENTLY RESTING IN BED. CALL LIGHT IN REACH. BED IN LOWEST POSITION.
[2023-11-20 20:18] VITALS: BP 118/47
[2023-11-21 03:37] VITALS: BP 147/77
[2023-11-21 06:18] LABS: BASOPHILS ABSOLUTE AUTO 0.01 K/mm3 (0.00-0.23); BASOPHILS PERCENT AUTO 0 % (0-2); EOSINOPHILS ABSOLUTE AUTO 0.03 K/mm3 (0.00-0.68); EOSINOPHILS PERCENT AUTO 1 % (0-6); Hematocrit 26.1 % (33.0-51.0); Hemoglobin 8.4 g/dL (11.5-16.0); IMMATURE GRAN ABSOLUTE AUTO 0.02 K/mm3 (0.00-0.10); IMMATURE GRAN PERCENT AUTO 1 % (0-1); LYMPHOCYTES ABSOLUTE AUTO 1.02 K/mm3 (0.84-5.20); LYMPHOCYTES PERCENT AUTO 27 % (21-46); MONOCYTES ABSOLUTE AUTO 0.59 K/mm3 (0.16-1.47); MONOCYTES PERCENT AUTO 16 % (4-13); Mean Corpuscular HGB 30.2 pg (26.0-34.0); Mean Corpuscular HGB Conc 32.2 g/dL (31.5-36.5); Mean Corpuscular Volume 94 fL (80-100); Mean Platelet Volume 10.5 fL (9.1-12.4); NEUTROPHILS ABSOLUTE AUTO 2.14 K/mm3 (1.96-9.15); NEUTROPHILS PERCENT AUTO 56 % (41-73); Platelet Count 240 K/mm3 (150-400); RDW Coefficient Variation 13.3 % (11.7-14.2); RDW Standard Deviation 46.3 fL (35.1-46.3); Red Blood Cell Count 2.78 M/mm3 (3.80-5.20); White Blood Cell Count 3.81 K/mm3 (4.00-11.30)
[2023-11-21 06:46] LABS: Albumin, Blood 2.2 g/dL (3.4-5.0); Albumin/Globulin Ratio 0.7 (0.8-1.8); Bilirubin, Total 0.2 mg/dL (0.1-1.0); Bun/Creatinine Ratio 20.2 (12.0-20.0); Calcium, Blood 8.1 mg/dL (8.5-10.1); Creatinine, Blood 0.79 mg/dL (0.40-1.00); Globulin, Blood 3.1 g/dL (2.2-4.0); Potassium, Blood 4.3 mmol/L (3.5-5.5); Total Protein, Blood 5.3 g/dL (6.4-8.2)
[2023-11-21 07:41] VITALS: BP 135/64
[2023-11-21 10:38] LABS: SARS-Cov-2 (COVID-19) PCR, MMC NEGATIVE (NEGATIVE)
[2023-11-21] MEDS ORDERED: TUMS500 MG PO (14:38)
[2023-11-21] MEDS ORDERED: OXYC5 PO (14:40)
[2023-11-21] MEDS ORDERED: LOPE2C PO (14:40)
[2023-11-21] MEDS ORDERED: PROM25 PO (14:41)
[2023-11-21] MEDS ORDERED: PANT20 PO (14:41)
[2023-11-21] MEDS ORDERED: METAMUCIL POWD798 GM PO (14:42)
[2023-11-21] MEDS ORDERED: SIME80CH PO (14:42)
[2023-11-21] MEDS ORDERED: SODCHL1 PO (14:42)
[2023-11-21 14:47] VITALS: BP 144/74
--- NOTE | 2023-11-21 18:22 | NUR ---
DC TO SNF Patient AOx4, pleasant and cooperative with cares. Diarrhea this morning, immodium given PRN x1. Vitals stable. Plan to DC this evening to [facility]. Patient left unit at 1745.
== END 2023-11-21 18:01 | DRG 329 ==
LOC: ER 20:18 → SURS 23:16 → ICUE 23:16 → SURS 11-05 00:43 → ICUE 11-05 09:51 → SURS 11-08 16:46 → MEDS 11-18 11:44 → ENPENDDIS 11-21 13:01 → MEDS 11-21 18:01
PROVIDERS: Family Medicine; Internal Medicine; Internal Medicine Critical Care Medicine; Student in an Organized Health Care Education/Training Program; Surgery; ADMIT Student in an Organized Health Care Education/Training Program
PROC: 0DBB0ZZ Excision of Ileum, Open Approach (ICD-10-PCS; principal; 2023-11-05 08:00)
PROC: 0DTF0ZZ Resection of Right Large Intestine, Open Approach (ICD-10-PCS; 2023-11-06)
PROC: 30233N1 Transfusion of Nonautologous Red Blood Cells into Peripheral Vein, Percutaneous Approach (ICD-10-PCS; 2023-11-06)
PROC: 3E033XZ Introduction of Vasopressor into Peripheral Vein, Percutaneous Approach (ICD-10-PCS; 2023-11-06)
DX: K45.0 Other specified abdominal hernia with obstruction, without gangrene (principal); K55.011 Focal (segmental) acute (reversible) ischemia of small intestine; R57.8 Other shock; E87.1 Hypo-osmolality and hyponatremia; D62 Acute posthemorrhagic anemia; I49.5 Sick sinus syndrome; E87.6 Hypokalemia; I10 Essential (primary) hypertension; R12 Heartburn; R19.7 Diarrhea, unspecified; J02.9 Acute pharyngitis, unspecified; R09.81 Nasal congestion; Z95.0 Presence of cardiac pacemaker; Z88.2 Allergy status to sulfonamides; Z88.1 Allergy status to other antibiotic agents; Z88.8 Allergy status to other drugs, medicaments and biological substances; Z87.891 Personal history of nicotine dependence
CPT/HCPCS: 36415; 36430; 51701; 51702; 71275; 74018; 74174; 80048; 80053; 80069; 81001; 81003; 82330; 82947; 83690; 83735; 84100; 84478; 84484; 85014; 85018; 85025; 85610; 86850; 86900; 86901; 86923; 88307; 93005; 93010; 94002; 94003; 94760; 94762; 96365; 96366; 96375; 96376; 97110; 97110-CQ; 97116; 97116-CQ; 97162; 97166; 97530; 97535; 99285-25; A9270; C1751; C9113; J0295; J0360; J1100; J1170; J1644; J1650; J2250; J2371; J2405; J2543; J2704; J3010; J3411; J3480; J7040; J7050; J7060; J7120; P9016; Q9967; U0002

== ENCOUNTER 2023-11-27 10:26 | Emergency (ER) | payer MEDICARE, OTHER ==
[~2023-11-27] VITALS: Ht 157.5 cm; Wt 63.5 kg
[~2023-11-27 10:26] MED LIST changes: +LOPE2C PO; +LOSARTAN POTASS25 M2 PO; +METAMUCIL POWD798 GM PO; +OXYC5 PO; +PANT20 PO; +PROM25 PO; +SIME80CH PO; +SODCHL1 PO; +TUMS500 MG PO
[2023-11-27 10:59] LABS: BASOPHILS ABSOLUTE AUTO 0.01 K/mm3 (0.00-0.23); BASOPHILS PERCENT AUTO 0 % (0-2); EOSINOPHILS ABSOLUTE AUTO 0.04 K/mm3 (0.00-0.68); EOSINOPHILS PERCENT AUTO 1 % (0-6); Hematocrit 28.3 % (33.0-51.0); Hemoglobin 9.3 g/dL (11.5-16.0); IMMATURE GRAN ABSOLUTE AUTO 0.03 K/mm3 (0.00-0.10); IMMATURE GRAN PERCENT AUTO 0 % (0-1); LYMPHOCYTES ABSOLUTE AUTO 1.56 K/mm3 (0.84-5.20); LYMPHOCYTES PERCENT AUTO 20 % (21-46); MONOCYTES ABSOLUTE AUTO 0.65 K/mm3 (0.16-1.47); MONOCYTES PERCENT AUTO 8 % (4-13); Mean Corpuscular HGB 30.4 pg (26.0-34.0); Mean Corpuscular HGB Conc 32.9 g/dL (31.5-36.5); Mean Corpuscular Volume 93 fL (80-100); Mean Platelet Volume 10.3 fL (9.1-12.4); NEUTROPHILS ABSOLUTE AUTO 5.47 K/mm3 (1.96-9.15); NEUTROPHILS PERCENT AUTO 71 % (41-73); Platelet Count 208 K/mm3 (150-400); RDW Coefficient Variation 13.6 % (11.7-14.2); RDW Standard Deviation 46.3 fL (35.1-46.3); Red Blood Cell Count 3.06 M/mm3 (3.80-5.20); White Blood Cell Count 7.76 K/mm3 (4.00-11.30)
[2023-11-27 11:21] LABS: Albumin, Blood 2.3 g/dL (3.4-5.0); Albumin/Globulin Ratio 0.7 (0.8-1.8); Bilirubin, Total 0.2 mg/dL (0.1-1.0); Calcium, Blood 7.7 mg/dL (8.5-10.1); Creatinine, Blood 0.44 mg/dL (0.40-1.00); Globulin, Blood 3.2 g/dL (2.2-4.0); Potassium, Blood 3.7 mmol/L (3.5-5.5); Total Protein, Blood 5.5 g/dL (6.4-8.2)
[2023-11-27 12:44] LABS: Source, Urine Clean Catch
[2023-11-27 12:53] LABS: Appearance, Urine Clear (Clear); Bilirubin, Urine Neg (Neg); Blood, Urine Neg (Neg); Glucose Qualitative, Urine Neg (Neg); Ketones, Urine Neg (Neg); Leukocyte Esterase, Urine Neg (Neg); Nitrite, Urine Neg (Neg); Protein, Urine Neg (Neg); Urobilinogen, Urine NORM (Normal)
[2023-11-27 12:58] LABS: Color, Urine Pale Yellow (P-Yellow)
[2023-11-27 14:45] VITALS: BP 120/86
== END 2023-11-27 15:00 | disposition home or self-care (01) ==
LOC: ER 10:26
PROVIDERS: Emergency Medicine; Physician Assistant
DX: R10.30 Lower abdominal pain, unspecified (principal); K57.30 Diverticulosis of large intestine without perforation or abscess without bleeding; I10 Essential (primary) hypertension; Z88.1 Allergy status to other antibiotic agents; Z91.011 Allergy to milk products; Z88.2 Allergy status to sulfonamides; Z88.8 Allergy status to other drugs, medicaments and biological substances; Z91.018 Allergy to other foods; Z79.899 Other long term (current) drug therapy; Z95.0 Presence of cardiac pacemaker
CPT/HCPCS: 74177; 80053; 81003; 83605; 84145; 85025; 93005; 93010; 96361; 96374-59; 96375; 99284-25; J1885; J3010; J7120; Q9967

== ENCOUNTER 2023-12-19 13:11 | Inpatient (IN) | payer MEDICARE, OTHER ==
[~2023-12-19] VITALS: Ht 157.5 cm; Wt 63.5 kg
[2023-12-19 15:37] LABS: BASOPHILS ABSOLUTE AUTO 0.01 K/mm3 (0.00-0.23); BASOPHILS PERCENT AUTO 0 % (0-2); EOSINOPHILS ABSOLUTE AUTO 0.04 K/mm3 (0.00-0.68); EOSINOPHILS PERCENT AUTO 1 % (0-6); Hematocrit 28.4 % (33.0-51.0); Hemoglobin 8.8 g/dL (11.5-16.0); IMMATURE GRAN ABSOLUTE AUTO 0.01 K/mm3 (0.00-0.10); IMMATURE GRAN PERCENT AUTO 0 % (0-1); LYMPHOCYTES ABSOLUTE AUTO 2.36 K/mm3 (0.84-5.20); LYMPHOCYTES PERCENT AUTO 53 % (21-46); MONOCYTES ABSOLUTE AUTO 0.42 K/mm3 (0.16-1.47); MONOCYTES PERCENT AUTO 9 % (4-13); Mean Corpuscular HGB 27.7 pg (26.0-34.0); Mean Corpuscular Volume 89 fL (80-100); Mean Platelet Volume 11.4 fL (9.1-12.4); NEUTROPHILS ABSOLUTE AUTO 1.65 K/mm3 (1.96-9.15); NEUTROPHILS PERCENT AUTO 37 % (41-73); Platelet Count 192 K/mm3 (150-400); RDW Coefficient Variation 14.4 % (11.7-14.2); RDW Standard Deviation 46.8 fL (35.1-46.3); Red Blood Cell Count 3.18 M/mm3 (3.80-5.20); White Blood Cell Count 4.49 K/mm3 (4.00-11.30)
[2023-12-19 16:00] LABS: Albumin, Blood 2.7 g/dL (3.4-5.0); Albumin/Globulin Ratio 0.9 (0.8-1.8); Bilirubin, Total 0.2 mg/dL (0.1-1.0); Calcium, Blood 5.4 mg/dL (8.5-10.1); Creatinine, Blood 0.75 mg/dL (0.40-1.00); Magnesium, Blood 0.6 mg/dL (1.6-2.4); Potassium, Blood 3.3 mmol/L (3.5-5.5); Total Protein, Blood 5.7 g/dL (6.4-8.2)
[2023-12-19 16:00] LABS: Influenza A, PCR NEGATIVE (NEGATIVE); Influenza B, PCR NEGATIVE (NEGATIVE); Resp Syncytial Virus, PCR NEGATIVE (NEGATIVE); SARS-Cov-2 (COVID-19) PCR, MMC NEGATIVE (NEGATIVE)
[2023-12-19 16:18] LABS: Ethanol (Alcohol), Blood, Med <3 mg/dL; Phosphorus, Blood 4.3 mg/dL (2.5-4.9)
[2023-12-19 18:21] LABS: Source, Urine Clean Catch
[2023-12-19 18:32] LABS: Appearance, Urine Clear (Clear); Bilirubin, Urine Neg (Neg); Blood, Urine Neg (Neg); Color, Urine Yellow (P-Yellow); Glucose Qualitative, Urine Neg (Neg); Ketones, Urine Neg (Neg); Leukocyte Esterase, Urine Neg (Neg); Nitrite, Urine Neg (Neg); Protein, Urine Neg (Neg); Urobilinogen, Urine NORM (Normal); pH, Urine 6.5 (5.0-8.0)
[2023-12-19 20:59] VITALS: BP 146/63
[2023-12-19 21:58] LABS: Albumin, Blood 2.5 g/dL (3.4-5.0); Albumin/Globulin Ratio 0.8 (0.8-1.8); Bilirubin, Total 0.2 mg/dL (0.1-1.0); Bun/Creatinine Ratio 5.4 (12.0-20.0); Calcium, Blood 5.9 mg/dL (8.5-10.1); Creatinine, Blood 0.74 mg/dL (0.40-1.00); Potassium, Blood 3.8 mmol/L (3.5-5.5); Total Protein, Blood 5.5 g/dL (6.4-8.2)
[2023-12-20 02:47] VITALS: BP 152/74
[2023-12-20 05:16] LABS: BASOPHILS ABSOLUTE AUTO 0.02 K/mm3 (0.00-0.23); BASOPHILS PERCENT AUTO 0 % (0-2); EOSINOPHILS ABSOLUTE AUTO 0.12 K/mm3 (0.00-0.68); EOSINOPHILS PERCENT AUTO 3 % (0-6); Hematocrit 26.4 % (33.0-51.0); Hemoglobin 8.3 g/dL (11.5-16.0); IMMATURE GRAN PERCENT AUTO 0 % (0-1); LYMPHOCYTES ABSOLUTE AUTO 2.55 K/mm3 (0.84-5.20); LYMPHOCYTES PERCENT AUTO 55 % (21-46); MONOCYTES ABSOLUTE AUTO 0.53 K/mm3 (0.16-1.47); MONOCYTES PERCENT AUTO 11 % (4-13); Mean Corpuscular HGB 27.9 pg (26.0-34.0); Mean Corpuscular HGB Conc 31.4 g/dL (31.5-36.5); Mean Corpuscular Volume 89 fL (80-100); NEUTROPHILS ABSOLUTE AUTO 1.42 K/mm3 (1.96-9.15); NEUTROPHILS PERCENT AUTO 31 % (41-73); Platelet Count 167 K/mm3 (150-400); RDW Coefficient Variation 14.5 % (11.7-14.2); RDW Standard Deviation 46.7 fL (35.1-46.3); Red Blood Cell Count 2.98 M/mm3 (3.80-5.20); White Blood Cell Count 4.64 K/mm3 (4.00-11.30)
[2023-12-20 05:36] LABS: Albumin, Blood 2.4 g/dL (3.4-5.0); Albumin/Globulin Ratio 0.8 (0.8-1.8); Bilirubin, Total 0.2 mg/dL (0.1-1.0); Bun/Creatinine Ratio 7.3 (12.0-20.0); Calcium, Blood 6.2 mg/dL (8.5-10.1); Creatinine, Blood 0.68 mg/dL (0.40-1.00); Globulin, Blood 2.9 g/dL (2.2-4.0); Magnesium, Blood 1.6 mg/dL (1.6-2.4); Potassium, Blood 3.5 mmol/L (3.5-5.5); Total Protein, Blood 5.3 g/dL (6.4-8.2)
--- NOTE | 2023-12-20 06:15 | NUR ---
SHIFT SUMMARY 73 YR F ADMITTED ON 12/19/23. DNR. NO ACUTE CHANGES THIS SHIFT. PT HAS HAD NO C/O SOB, CHEST PAIN, N/V THIS SHIFT. SHE DIS C/O HEADACHE THIS MORNING AND WAS GIVEN TYLENOL PER EMAR. CALCIUM LEVEL IS UP TO 6.2, MAGNESIUM IS UP TO 1.6, AND POTASSIUM IS WNL. ORAL POTASSIUM WAS HELD LAST NIGHT IT WAS NOT GIVEN IN THE ER AND WAS SENT TO THIS FLOOR LATE. BY THE TIME IT GOT HERE LABS HAD ALREADY BEEN DRAWN AND POTASSIUM WAS BACK WNL. K+ PILLS ARE IN PT DRAWER. PT IS A&O X 4 AND AMBYULATES INDEPENDANTLOY TO THE BATHROOM. BED IN LOW POSITION AND CALL LIGHT IN REACH.
[2023-12-20 06:59] VITALS: BP 154/77
[2023-12-20 13:03] LABS: Albumin, Blood 2.3 g/dL (3.4-5.0); Albumin/Globulin Ratio 0.8 (0.8-1.8); Bilirubin, Total 0.3 mg/dL (0.1-1.0); Bun/Creatinine Ratio 6.6 (12.0-20.0); Creatinine, Blood 0.61 mg/dL (0.40-1.00); Percent Saturation 11.6 % (15.0-50.0); Potassium, Blood 4.4 mmol/L (3.5-5.5); Total Protein, Blood 5.3 g/dL (6.4-8.2)
[2023-12-20] MEDS ORDERED: FERROUS GLUCON324 M2 PO (15:49)
[2023-12-20] MEDS ORDERED: CALCIUM CITRAT200 MG PO (15:50)
[2023-12-20] MEDS ORDERED: MAGNESIUM OXID500 MG PO (15:50)
[2023-12-20] MEDS ORDERED: ERGO50000 PO (15:51)
--- NOTE | 2023-12-20 16:45 | NUR ---
DISCHARGE SUMMARY: PATIENT REPORTED MINIMAL TO NO NUMBNESS/TINGLING THAT ORIGINALLY BROUGHT HER INTO THE HOSPITAL. PATIENT ALERT AND ORIENTED X4. PATIENT INDEPENDENT IN THE ROOM. PATIENT DENIED MUSCLE CRAMPS, DIZZINESS, AND/OR NAUSEA. PATIENT TOLERATING PO INTAKE HOWEVER, SHE REPORTS SOON AFTER EATING SHE NEEDS TO HAVE A BOWEL MOVEMENT. 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 PATIENT REPORTS NO NOTICABLE INCREASE IN THE SIZE OF HER LEGS. PATIENT HAS SOME SWELLING IN HER LEFT ARM THAT SHE REPORTS IS RELATED TO A PIV SHE RECEIVED ABOUT 2 W[address] A[address] YUAN AND ENCOURAGED PATIENT TO DISCUSS DURING HER OUTPATIENT APPOINTMENT. PATIENT RECEIVED OT DOSE OF CALCIUM GLUCONATE PRIOR TO DISCHARGING. DISCHARGE MEDICATIONS FAXED TO [facility] PER PATIENT REQUEST. DISCHARGE EDUCATION AND INSTRUCTIONS PROVIDED TO PATIENT. ALL QUESTIONS AND CONCERNS ADDRESSED. 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 PATIENT STABLE AT TIME OF DISCHARGE. POST DISCHARGE, VERIFIED DISCHARGE DOSING FOR CALCIUM CITRATE WITH DR. YUAN ([facility] DID NOT HAVE THE PRESCRIBED TABLES AVAILABLE) TO BE 800 MG BID.
== END 2023-12-20 16:48 | disposition home or self-care (01) | DRG 392 ==
LOC: ER 13:11 → MEDS 13:12
PROVIDERS: Emergency Medicine; Family Medicine; ADMIT Hospitalist
DX: K91.2 Postsurgical malabsorption, not elsewhere classified (principal); E83.51 Hypocalcemia; E83.42 Hypomagnesemia; Z90.89 Acquired absence of other organs; Z98.890 Other specified postprocedural states; Z66 Do not resuscitate; E87.6 Hypokalemia; I10 Essential (primary) hypertension; D64.9 Anemia, unspecified; Y83.8 Other surgical procedures as the cause of abnormal reaction of the patient, or of later complication, without mention of misadventure at the time of the procedure; I49.5 Sick sinus syndrome; Z79.891 Long term (current) use of opiate analgesic; Z79.899 Other long term (current) drug therapy; Z88.2 Allergy status to sulfonamides; Z88.1 Allergy status to other antibiotic agents; Z91.011 Allergy to milk products; Z88.8 Allergy status to other drugs, medicaments and biological substances; Z91.018 Allergy to other foods; Z95.0 Presence of cardiac pacemaker; Z90.49 Acquired absence of other specified parts of digestive tract; R94.31 Abnormal electrocardiogram [ECG] [EKG]; Z11.52 Encounter for screening for COVID-19
CPT/HCPCS: 0241U; 36415; 70450; 71046; 80053; 81003; 82306; 82607; 82728; 82746; 83540; 83550; 83605; 83690; 83735; 83880; 84100; 84145; 84484; 85025; 93005; 93010; 96365; 96366; 96368; 99285-25; A9270; C9113; J0612; J3475; J7050

== ENCOUNTER → 2024-01-09 | Outpatient (CLI) | payer MEDICARE, OTHER ==
[~2024-01-09] MED LIST changes: +CALCIUM CITRAT200 MG PO; +ERGO50000 PO; +FERROUS GLUCON324 M2 PO; +MAGNESIUM OXID500 MG PO
[2024-01-10 13:53] LABS: Campylobacter Sp Not Detected (NOT DETECT)
[2024-01-10 13:54] LABS: Enteroaggregative E. coli-EAEC Not Detected (NOT DETECT); Plesiomonas Shigelloides Not Detected (NOT DETECT); Salmonella Sp Not Detected (NOT DETECT); Vibrio Cholerae Not Detected (NOT DETECT); Vibrio Sp Not Detected (NOT DETECT); Yersinia Enterocolitica Not Detected (NOT DETECT)
[2024-01-10 13:55] LABS: Adenovirus F 40/41 Not Detected (NOT DETECT); Astrovirus Not Detected (NOT DETECT); Cryptosporidium Not Detected (NOT DETECT); Cyclospora Cayetanensis Not Detected (NOT DETECT); E. Coli O157 Not Detected (NOT DETECT); Entamoeba Histolytica Not Detected (NOT DETECT); Enteropathogenic E. coli-EPEC Not Detected (NOT DETECT); Enterotoxigenic E. coli-ETEC Not Detected (NOT DETECT); Giardia Lamblia Not Detected (NOT DETECT); Norovirus GI/GII Not Detected (NOT DETECT); Rotavirus A Not Detected (NOT DETECT); Sapovirus Not Detected (NOT DETECT); Shiga Toxin-prod E. coli-STEC Not Detected (NOT DETECT); Shigella/Enteroin E. coli-EIEC Not Detected (NOT DETECT)
[2024-01-10 15:22] LABS: Stool Occult Bld Immuno 1 Negative (NEGATIVE)
== END | disposition home or self-care (01) ==
LOC: LAB 11:50 → LAB SHORT 11:50
PROVIDERS: Family Medicine
DX: K92.1 Melena (principal); R19.7 Diarrhea, unspecified
CPT/HCPCS: 82274; 87507

== ENCOUNTER 2024-08-04 10:06 | Emergency (ER) | payer MEDICARE, OTHER ==
[~2024-08-04] VITALS: Ht 160 cm; Wt 63.5 kg
[2024-08-04] MEDS ORDERED: Fluorescein Sod 1MG Opth Strips BOTHEYES SCH (10:40)
[2024-08-04] MEDS ORDERED: Tetracaine HCl/Pf 0.5% Opth Soln 4 ml BOTHEYES SCH (10:40)
[2024-08-04] MEDS ORDERED: AMOX-CLAV 875-1 EAC5 (10:48)
[2024-08-04] MEDS ORDERED: CATAPRES0.1 MG PO (10:49)
[2024-08-04] MEDS ORDERED: HYDCHL25 PO (10:49)
[2024-08-04 11:41] VITALS: BP 157/70
[2024-08-04 11:48] LABS: BASOPHILS ABSOLUTE AUTO 0.02 K/mm3 (0.00-0.23); BASOPHILS PERCENT AUTO 0 % (0-2); EOSINOPHILS PERCENT AUTO 1 % (0-6); Hematocrit 36.5 % (33.0-51.0); IMMATURE GRAN ABSOLUTE AUTO 0.03 K/mm3 (0.00-0.10); IMMATURE GRAN PERCENT AUTO 0 % (0-1); LYMPHOCYTES ABSOLUTE AUTO 1.88 K/mm3 (0.84-5.20); LYMPHOCYTES PERCENT AUTO 19 % (21-46); MONOCYTES ABSOLUTE AUTO 0.62 K/mm3 (0.16-1.47); MONOCYTES PERCENT AUTO 6 % (4-13); Mean Corpuscular HGB 30.3 pg (26.0-34.0); Mean Corpuscular HGB Conc 32.9 g/dL (31.5-36.5); Mean Corpuscular Volume 92 fL (80-100); Mean Platelet Volume 9.9 fL (9.1-12.4); NEUTROPHILS ABSOLUTE AUTO 7.16 K/mm3 (1.96-9.15); NEUTROPHILS PERCENT AUTO 73 % (41-73); Platelet Count 255 K/mm3 (150-400); RDW Coefficient Variation 14.4 % (11.7-14.2); RDW Standard Deviation 48.6 fL (35.1-46.3); Red Blood Cell Count 3.96 M/mm3 (3.80-5.20); White Blood Cell Count 9.81 K/mm3 (4.00-11.30)
[2024-08-04 12:08] LABS: Albumin, Blood 3.7 g/dL (3.4-5.0); Bilirubin, Total 0.4 mg/dL (0.1-1.0); Bun/Creatinine Ratio 25.1 (12.0-20.0); C-REACTIVE PROTEIN, EXT RANGE 3.09 mg/dL (0.000-0.300); Calcium, Blood 9.5 mg/dL (8.5-10.1); Creatinine, Blood 0.88 mg/dL (0.40-1.00); Globulin, Blood 3.8 g/dL (2.2-4.0); Potassium, Blood 3.6 mmol/L (3.5-5.5); Total Protein, Blood 7.5 g/dL (6.4-8.2)
== END 2024-08-04 12:18 | disposition home or self-care (01) ==
LOC: ER 10:06
PROVIDERS: Physician Assistant
DX: H44.002 Unspecified purulent endophthalmitis, left eye (principal); H16.002 Unspecified corneal ulcer, left eye; I10 Essential (primary) hypertension; E78.5 Hyperlipidemia, unspecified; J45.909 Unspecified asthma, uncomplicated; K21.9 Gastro-esophageal reflux disease without esophagitis; M19.90 Unspecified osteoarthritis, unspecified site; Z87.891 Personal history of nicotine dependence; Z79.899 Other long term (current) drug therapy; Z91.040 Latex allergy status; Z91.018 Allergy to other foods; Z88.2 Allergy status to sulfonamides; Z88.5 Allergy status to narcotic agent; Z88.8 Allergy status to other drugs, medicaments and biological substances; Z88.1 Allergy status to other antibiotic agents
CPT/HCPCS: 80053; 85025; 85651; 86140; 99283; A9270

== ENCOUNTER 2025-01-07 12:30 | Emergency (ER) | payer MEDICARE, OTHER ==
[~2025-01-07] VITALS: Ht 157.5 cm; Wt 63.5 kg
[~2025-01-07 12:30] MED LIST changes: +AMOX-CLAV 875-1 EAC5; +CATAPRES0.1 MG PO; +HYDCHL25 PO
[2025-01-07 12:57] VITALS: BP 166/90
[2025-01-07] MEDS ORDERED: CRUTCH2 XX (15:47)
== END 2025-01-07 16:25 | disposition home or self-care (01) ==
LOC: ER 12:30
DX: S82.845A Nondisplaced bimalleolar fracture of left lower leg, initial encounter for closed fracture (principal); I10 Essential (primary) hypertension; E78.5 Hyperlipidemia, unspecified; Z87.891 Personal history of nicotine dependence; W18.30XA Fall on same level, unspecified, initial encounter
CPT/HCPCS: 29515; 73610; 93971; 99284-25